=== PATIENT | male | born 1950 | race Caucasian/White ===

== ENCOUNTER 2024-12-12 20:42 | Outpatient (OUT) | payer MEDICARE, SELFPAY ==
--- OUTSIDE RECORDS SUMMARY | 2024-11-30 15:30 | XMS_ITS | Encounter Summary ---
Author Organization [facility] Address [address] [place] [address] Care Team Providers Care Principal Law Clerk Name Role Phone DavidPo marie DO Primary Care Provider Rosa Vicente AUD Unavailable [phone] Oziel Ramires DO Unavailable [phone] Reason for Visit * JleersJgwkqpzf6hn po port removal Encounter Details DateTypeDepartmentCare Team (Latest Contact Info)Adhvcajrybt22/09/2025 3:30 PM EDTOffice Visit [facility] [address] [place] [address] Remington Delaney, DO [address] [facility] [address] [place] [address] Adjustment and management of vascular access device (Primary Dx) Social History Tobacco UseTypesPacks/DayYears UsedDateSmoking Tobacco: Some DaysPipeSmokeless Tobacco: NeverAlcohol UseStandard Drinks/WeekCommentsNot Egfxdcbwx86 (1 standard drink = 0.6 oz pure alcohol)Sex and Gender InformationValueDate RecordedSex Assigned at BirthNot on fileLegal HxgTbeu6205/06/2022 6:36 PM EDTGender Identity Not on fileSexual OrientationNot on filedocumented as of this encounter Last Filed Vital Signs Vital SignReadingTime TakenCommentsBlood Pressure--Pulse--Temperature-- Respiratory Rate--Oxygen Saturation--Inhaled Oxygen Concentration--Gbimnf81.6 kg (202 lb)11/30/2024 3:20 PM PNXJlgyhu367.3 cm (5' 9 )11/30/2024 3:20 PM EDTBody Mass Index29.8311/30/2024 3:20 PM EDTdocumented in this encounter Progress Notes * Remington Delaney DO - 11/30/2024 3:30 PM EDT Images from the original note were not included. Jasper Tineo 1950 Jasper Tineo is a 74 y.o. male presents for 1st po port removal HPI: HPI Patient had no problems with the port removal. He has not having any pain. He has not having issues with the incision. He has not having any chest pain. He has not having any shortness of breath.He has not having any swelling anywhere. Not having any extremity pain or bruising OBJECTIVE: Physical Exam Constitutional: Appearance: Normal appearance. He is not toxic-appearing. Cardiovascular: Rate and Rhythm: Regular rhythm. Chest: Comments: Incision is clean dry and intact no cellulitis or hematoma Skin: Comments: No edema in the lower extremities. ASSESSMENT AND PLAN: Assessment/Plan Diagnoses and all orders for this visit: Adjustment and management of vascular access device - XR chest 2 views; Future Status post removal of vascular access port, at the site where the catheter dove under the claviclethat was frayed and had broken off. The intravascular portion of the catheter is still in place at its access site, postop chest x-ray had shown this had not moved and almost always there is a fibrinous sheath that would keep that in location. This probably will not be an issue to stay there and attempted removal could be difficult and potentially dangerous. He is fine with leaving this in place.We will get an x-ray again in 3 weeks to make sure this has not moved, if this did float intravascularly would be much easier to remove by endovascular fashion. He understands that. I will see him again in 3 weeks with x-ray. Cont on asa 81mg po qdaily No follow-ups on file. documented in this encounter Plan of Treatment DateTypeDepartmentCare Team (Latest Contact Info)Stposstzrpt50/29/2025 11:15 AM EDTOffice Visit [facility] [address] [facility] [address] [place] [address] Remington Delaney, DO [address] [facility] [address] [place] [address] documented as of this encounter Procedures Procedure NamePriorityDate/TimeAssociated DiagnosisCommentsXR CHEST 2 VIEWS Xivfiqp6912/06/2024 3:56 PM EDT Adjustment and management of vascular access device documented in this encounter Results * XR chest 2 views (12/06/2024 3:56 PM EDT)Anatomical RegionLateralityModality ChestRadiographic ImagingSpecimen (Source)Anatomical Location / Laterality Collection Method / VolumeCollection TimeReceived Time12/06/2024 3:56 PM EDT Impressions 12/06/2024 4:00 PM EDT THE REMAINING TUBING OF THE PATIENT'S PORT IS SEEN PROJECTING OVER THE EXPECTED LOCATION OF THE LEFT BRACHIOCEPHALIC VEIN. ? Impression dictated by: Moe Cole Jr., D.OUmair ??12/06/2024 3:57 PM ? Dictation Location: [facility]-22 ? Transcribed By: ? PWS ?12/06/24 1557 ? Dictated By: ?Moe Cole Jr, DO ?12/06/24 1556 ? Signed By: <Electronically signed by Moe Cole Jr DO in OV> ?10/15/25 1557 Narrative 12/06/2024 4:00 PM EDT [facility] ?[facility] ?[address] ? [place] [address] ?XRay Report ? Signed ? Patient: Noman,Jasper B ?MR#: [id number] ?? [id number] ? : 1950 ?Acct:[id number] ? Age/Sex: 74 / M ?ADM Date: 12/06/24 ? Loc: XD ?Room: ?Type: REG CLI ?? Attending Dr: Remington Delaney DO ?? Copies to: Remington Delaney DO ? Ordering Provider: Remington Delaney DO ?? Date of Service: 12/06/24 ?? XR/XR chest 2V*: Vascular access port ? Chest 2 views ? CLINICAL HISTORY: Broken port. ? COMPARISON: None ? FINDINGS: ? The remaining tubing of patient's port is seen over the expected location of the left brachiocephalic vein. ??Heart appears normal in size. 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 ??No consolidation pneumothorax pleural effusion or free air. ? XR/XR chest 2V* ?? Procedure Note Moe Cole Jr., DO - 12/06/2024 [facility] [address] XRay Report Signed Patient: Jasper Tineo BMR#: [id number] : 1950Acct:[id number] Age/Sex: 74 / MADM Date: 12/06/24 Loc: XD Room:Type: REG CLI Attending Dr: Remington Delaney DO Copies to: Remington Delaney DO Ordering Provider: Remington Delaney DO Date of Service: 12/06/24 XR/XR chest 2V*: Vascular access port Chest 2 views CLINICAL HISTORY: Broken port. COMPARISON: None FINDINGS: The remaining tubing of patient's port is seen over the expected locationof the left brachiocephalic vein. Heart appears normal in size. Evidence oldgranulomatous disease. No consolidation pneumothorax pleural effusion or free air. XR/XR chest 2V* IMPRESSION: THE REMAINING TUBING OF THE PATIENT'S PORT IS SEEN PROJECTING OVER THEEXPECTED LOCATION OF THE LEFT BRACHIOCEPHALIC VEIN. Impression dictated by: Moe Cole Jr., D.O. 12/06/2024 3:57 PM Dictation Location: [facility]--22 Transcribed By: [facility] 12/06/24 155 Dictated By: Moe Cole Jr, DO 12/06/24 1556 Signed By: <Electronically signed by Moe Cole Jr, DO inOV> 12/06/24 155 Authorizing ProviderResult TypeResult StatusPaul Tita Delaney DOIMG XR PROCEDURES Final Result documented in this encounter Visit Diagnoses Diagnosis Adjustment and management of vascular access device- Primary documented in this encounter Care Teams Team MemberRelationshipSpecialtyStart DateEnd Date Po Joseph DO [address] [place] [address] PCP - GeneralFamily Medicine07/03/24 Rosa Vicente, AUD [address] [place] [address] Audiology08/09/24 Oziel Ramires DO [address] [place] [address] Otolaryngology08/09/24documented as of this encounter
--- OUTSIDE RECORDS SUMMARY | 2024-12-06 21:02 | XMS_ITS | Continuity of Care Document ---
Author Organization [facility] Address [address] [place] [address] Phone Care Team Providers Care Personal Insurance Advisor Name Role Phone Po Joseph DO Primary Care Provider Nicky Munroe DO Attending Provider Jerel Hanson PhD Attending Provider [phone] Ab Sultana MD Attending Provider Leroy Vallejo DO Primary Care Provider Leroy Vallejo DO Attending Provider [phone] Remignton Delaney DO Attending Provider Mayo Joseph DO Primary Care Provider [phone] Care Teams Patient Care Team Team Status: Active Member Role Status Dates Rich Sultana Specialist Active ELENA CheneypecialistAELENA FisherpecialistActiveBerriospecialistAEda Whittaker Care ProviderActive Visit Care Team Team Status: Inactive Member Role Status Dates Po Joseph DO Primary Care Provider Active Sta rt: September 11, 2024 End: September 11, 2024Niccaridad Munroe DOAttending ProviderActiveStart: September 11, 2024 End: September 11, 2024 Visit Care Team Team Status: Inactive Member Role Status Dates Po Joseph DO Primary Care Provider Active Sta rt: September 12, 2024 End: September 12, 2024Jerel Hanson PhDAttending ProviderActiveStart: September 12, 2024 End: September 12, 2024 Visit Care Team Team Status: Inactive Member Role Status Dates Po Joseph DO Primary Care Provider Active Sta rt: September 25, 2024 End: September 25, 2024Jerel Hanson PhDAttending ProviderActiveStart: September 25, 2024 End: September 25, 2024 Visit Care Team Team Status: Inactive Member Role Status Dates Ab Sultana MD Attending Provider Active Start: October 12, 2024 End: October 12, 2024Eda Villagran Care ProviderActiveStart: October 12, 2024 End: October 12edward Og [facility] DO CHCReferring ProviderActiveStart: October 12, 2024 Visit Care Team Team Status: Inactive Member Role Status Dates Leroy Vallejo DO Primary Care Provider Active Start: October 17, 2024 End: October 17, 2024Leroy Vallejo DOAttending ProviderActiveStart: October 17, 2024 End: October 17, 2024 Visit Care Team Team Status: Inactive Member Role Status Dates Remington Delaney DO Attending Provider Active Start : November 22, 2024 End: November 22Eda Fair Care ProviderActiveStart: November 22, 2024 End: November 22, 2024 Visit Care Team Team Status: Inactive Member Role Status Dates Nicky Munroe DO Attending Provider Active Sta rt: November 29, 2024 End: November 29Eda Fair Care ProviderActiveStart: November 29, 2024 End: November 29, 2024 Visit Care Team Team Status: Inactive Member Role Status Emmanuel Joseph DO Primary Care Provider Active Sta rt: December 06, 2024 End: December 06, 2024Remington Delaney DOAttending ProviderActiveStart: December 06, 2024 End: December 06, 2024 Chief Complaint and Reason for Visit Chief Complaint Admit Date Routine September 11, 2024 1:54 pm NPCR TRAD MEDICARE/SUPP; YUNIOR pereyra 2024 12:46pm NPCR TRAD MEDICARE/SUPP; PER Zeenat Estrada ugust 2024 9:55am Follow Up after CT October 12, 2024 1: 14pm 5 month f/u-labs October 17, 2024 10 :21am Venous Insufficiency, port no longer nee ded November 22, 2024 1:58pm Results Review November 29, 2024 12 :55pm Z45.2 December 06, 2024 1 0:16am Reason for Visit Admit Date Concentration deficit September 11, 2024 1: 54pm Concentration deficit September 12, 2024 12 :46pm Memory loss September 12, 2024 12:4 6pm BERNADETTE (obstructive sleep apnea) September 12, 2024 12:46pm Word finding difficulty September 12, 2024 12:46pm Concentration deficit September 25, 2024 9 :55am Inadequate sleep hygiene September 25 9:55am Memory loss September 25, 2024 9:5 5am Mild cognitive impairment September 25 9:55am BERNADETTE (obstructive sleep apnea) September 9:55am Word finding difficulty September 25, 2024 9:55am Carcinoma of unknown primary September 1:14pm Encounter for palliative care September 1:14pm Mass of colon October 12, 2024 1: 14pm Polyarthralgia October 12, 2024 1: 14pm Cancer associated pain October 12, 2024 1:14pm Mediastinal mass October 12, 2024 1: 14pm B12 deficiency October 12, 2024 1: 14pm Carcinoma of unknown primary September 1:14pm Mass of colon October 12, 2024 1: 14pm Non-small cell lung cancer October 12, 2024 1:14pm Peripheral neuropathy October 12, 2024 1:14pm Secondary adrenal insufficiency September 232024 1:14pm Mediastinal mass October 12, 2024 1: 14pm Alcohol use October 17, 2024 10 :21am Carcinoma of unknown primary September 10:21am Daytime sleepiness October 17, 2024 10 :21am Dizziness October 17, 2024 10 :21am Forgetfulness October 17, 2024 10 :21am HTN (hypertension) October 17, 2024 10 :21am Nasal sinus congestion October 17, 2024 10:21am Sinusitis October 17, 2024 10 :21am Snoring October 17, 2024 10 :21am Hypersomnia November 29, 2024 12 :55pm Inadequate sleep hygiene November 29 12:55pm Medication side effect November 29, 2024 12:55pm Mild cognitive impairment November 29 12:55pm Allergies, Adverse Reactions, Alerts Allergen Type Severity Reaction Last Updated Verified Status Comments naproxen Allergy Unknown Hives November 29, 2024 1:06pm Yes Active pembrolizumabAllergyUnknownNumbnessOct2024 1:06pmYesActivenumbness in feet, diarrhea Social History Smoking Status Status Start Date End Date Date of Observa tion Smokes tobacco daily (finding) November 22, 2024 2:10pm Observation Status Observation Response Date of Response Legal Sex Male (finding) [facility] 1950 Family History Relationship Condition Age at Onset Recorded Date/T byron mother Diabetes mellitus Unknown fatherNo active medical problemsUnknownbrotherMalignant neoplasmUnknownbrother Malignant neoplasmUnknownbrotherDeceasedUnknownfatherDeceasedUnknownmother Diabetes mellitusUnknownDeceasedUnknown Problems Active Problems Medical Problem Onset Date Status Comments Daytime sleepiness Unknown Active Word finding difficultyUnknownActiveBone pain of lower legUnknownActiveCOVID-19 UnknownActiveHistory of immune checkpoint inhibitor therapyUnknownActiveAdverse effect of immune checkpoint inhibitors and immunostimulant drugs, initial encounterUnknownActiveOSA (obstructive sleep apnea)UnknownActiveSensation of fullness in left earUnknownActiveMedication side effectUnknownActiveMass of colonUnknownActiveSecondary adrenal insufficiencyUnknownActiveNasal sinus congestionUnknownActiveDizzinessUnknownActiveAlcohol useUnknownActive KgohagtqivqvmlQejkjhzGdvxpfM25 deficiencyUnknownActiveForgetfulnessUnknownActive Memory lossUnknownActiveDiarrheaUnknownActiveHyperlipidemiaUnknownActive HypersomniaUnknownActiveNon-small cell lung cancerUnknownActiveMild cognitive impairmentUnknownActivePeripheral neuropathyUnknownActiveSinusitisUnknownActive SnoringUnknownActiveInadequate sleep hygieneUnknownActiveCarcinoma of unknown primaryUnknownActiveLocated in upper anterior mediastinumChemotherapy adverse reactionUnknownActiveEncounter for palliative careUnknownActiveHTN (hypertension)UnknownActiveFrozen shoulder syndromeUnknownActiveRight shoulder Concentration deficitUnknownActiveInactive/Resolved Problems Medical Problem Onset Date Status Comments Ulcerative colitis in remission Unknown Resolved DiarrheaUnknownResolvedCancer associated painUnknownResolvedMediastinal mass UnknownResolvedHypoxiaUnknownResolvedStrain of neck muscleUnknownResolved HypotensionUnknownResolvedProctocolitisUnknownResolved Medications Medication Status Dose Units Route Directions Qty Days St art Date Stop Date End Date Instructions Adherence Folic Acid 1 mg tablet Discontinued 0 .ROUTE.MPXVUJO35Lprs 2023 8:26amJanuary 2024 11:43amTAKE 1 TABLET BY MOUTH DAILYDiphenoxylate-Atropine (Lomotil) 2.5-0.025 mg ksazqeUnfgyfdlgyfl6XZM POTwice daily as needed for junobffh9825Jhzmfih 2023 12:00amJanuary 2024 10:24amIbuprofen 800 mg xzurhrFohnrypgqkec278YBGEYzvep times daily as needed for dthu072Hdmsgbs 2024 11:53amJuly 2024 8:32amHydrocortisone 10 mg tabletDiscontinued0.ROUTE.VOOZINJ21Hlutyio 2024 4:01pmJanuary 2024 10:27amTAKE 2 TABLETS BY MOUTH IN THE MORNING and TAKE 1 TABLET BY MOUTH IN THE EVENINGAmlodipine 2.5 mg tabletActive2.6LBXFFgynd83Vyss 2024 12:00am UnknownIbuprofen 800 mg prgoleMwfmwakbufyi776BVLMIgpgl times daily as needed for enjq581Owni 2024 8:32amOctober 2024 1:06pmPrednisone 20 mg Tablet DiscontinuedNovember 2016 1:00amAugust 2019 11:15amFluticasone Propionate 50 mcg/actuation spray,suspensionDiscontinuedNovember 14th, 2017 1:002019 11:14amMesalamine (Lialda) 1.2 gram Tablet,Delayed Release (/Ec)DiscontinuedJanuary 05, 2017 1:002019 11:15am Hydrocodone-Acetaminophen ([place]) 5-325 mg hbxnkpRkpmjgpvwegt9EBAUMLIZNG 4-6 HOURS as needed for muas26Brqehxqx 16thgus2019 11:14am Amoxicillin-Pot Clavulanate (Augmentin) 875-125 mg tawxcsTeyjykblhvpi8ZSYWOJxkap czfia69Phfdmnsu2016 1:002019 11:14amwith food Hydrocortisone 10 mg ovveawPgoauweaycpx80FDXYWuynl tekvg42Fcddkx 2nd, 2024 12:00amSept2023 1:37pm2 tabs in morning, 1 tab in evening.Loperamide 2 mg ivssslrMhaxplsnzfsx5BHIGUdwjh 6 hours as needed for loose vngid31Lmsfvx 2023 12:00amJanuary 2024 11:44amIbuprofen 800 mg tabletDiscontinued 800MGPOThree times daily as needed for PainAugust 2019 12:00amMarch 2023 1:40pmCyanocobalamin (Vitamin B-12) (Vitamin B-12) 1,000 mcg TabletActive 1000MCGPODailyRiverside Health System2019 12:83cxOqzmwtkYvsqocns-Jcr-Nygpo-Vit K-Lycop (Men's Multivitamin) 400-20-300 mcg QlijjaZscaju1GFOBFZrxulPgrtrg 2019 12:00amUnknownAmlodipine 2.5 mg tabletDiscontinued2.5MGPOEvery morningJuly 2022 12:00amMay 2023 10:09amHydrochlorothiazide 12.5 mg tabletDiscontinued 12.5MGPOEvery morningJuly 2022 12:00amMay 2023 10:09amMethocarbamol 750 mg kyxpzsSslggciuwzhn383NIJYPdxxr at hpxmfpc01Dazr 2022 12:00amJanuary 2023 12:23pmHydrocodone-Acetaminophen 5-325 mg nnpmihCsdyplhgxtli2BRXNIL7Y as needed for ejii926Mdbl 2022January 2023 12:22pmLidocaine 5 % adhesive patch,fofspeskmHazounancgku6MCMGKAKDUCECT44U89Fpbx 2022 12:00am Deepa 2023 12:23pmleave on most painful area for up to 12 hrs Methylprednisolone (Medrol (Oseas)) 4 mg tablets,dose abuwImgzdpbtpweg1YY.COMPLEX 21July 2022 12:00amDecember 2022 11:07amorally per package directionsHydrocodone-Acetaminophen 5-325 mg LmgbyxTjauajkiifio6BUMLXL7O as needed for Kiks7153Ymxxgqs 2023February 2023 2:02pmOxycodone 5 mg xzxvkeKvniwthogjil5FRUCOccgm 6 hours as needed for hrin54Mvmuy 2023March 2023 1:40pmAspirin 81 mg xmzvvnpCsvmgk03RYIJJavzz27Nndhgbb 2024 12:00amUnknownTramadol 50 mg vzmtzxJugaloghtdzx63HDSZSzgmm daily as needed for nery7886Aqsod 2023 12:00amMay 2023 4:44pmFolic Acid 1 mg tablet Jxlnzyssosuf6HJKCLaioj72Adzmg 2023 12:00amJuly 2023 8:26am Fluticasone Furoate (Flonase Sensimist) 27.5 mcg/actuation spray,suspension Bxmvixujkmus5FVUWEPBYCSWPFDNDhjhx7.6June 2023 12:00amJuly 2023 9:15am into each nostrilPrednisone 20 mg rsgjiuPziowusiynjl39FWWKWyovt01Muzgyc 2023 12:00amSeptember 2023 1:37pmtake 60mg for 4 days then 50mg for 4 days then 40mg for 4 days then 30mg for 4 days then 20mg for 4days then 10mg for 1 week then stopHydrocortisone 10 mg xnbztkXycrdurpyukl17VFYDShnmu daily90 October 28, 2023 12:00amJanuary 2024 4:01pmtake 2 tabs in AM and 1 tab in PMPyridoxine (Vitamin B6) 50 mg ranytpWquflpypsbyd67FCXJJjstrElhkofe 2024 1:00amAugust 2024 10:46amHydrocortisone 10 mg yyjfqmNfuzbdhudzmr04EY PODailyFebuary 2024 10:26amAugust 2024 1:35pmAzithromycin (Zithromax Z-Oseas) 250 mg yrvqoqGfsgdfgdlpvm0NA.KDSVUYK3Jyprryc 2024 1:00amMarch 2024 10:15amFor 250 mg dose pack: take 500 mg today (day 1), then 250 mg for 4 days (days 2-5) POFluticasone Propionate (Flonase Allergy Relief) 50 mcg/actuation spray,xdetuwpucsHzawck2YGFMTFGBGLQTFADQwvsf mcgta43Bvhhazx2024 1:00amadminister into each nostrilUnknownAmoxicillin-Pot Clavulanate 875- 125 mg nbwildAtvbksiejcvg3LZRYZ.Twice a hln889Idqkpg 2024 12:00amOctober 2024 2:12pmOndansetron Hcl 8 mg fowivnWyqfjgliruzr5GMTRTmuxw 8 hours as needed for nausea and vgrotqgr23Ckxzukvy 2023 1:00amMarch 2023 1:40pmIbuprofen 800 mg hhbjrmLpjdkxvhnezj993KYQLJfntm times daily as needed for painMay 2023 12:00amJanuary 2024 11:54amThiamine Hcl (Vitamin B1) 100 mg nupazfUxcvaogyczpr381SOHXDzvnwHzl 2023 12:00amAugust 2024 10:46am Tramadol 50 mg bokgicJzuyakwrhomi26RHFIVyfau 6 hours as neededMay 2023 12:00amJuly 2023 9:32amDocusate Sodium (Colace) 100 mg capsuleDiscontinued 100MGPODailyy 2023 12:00amJuly 2023 8:34amGabapentin 300 mg mqeeyrcLzwbwrfgqsjg849FZDEScrym at uvwgqjc13Fhwg 2023 12:00amAugust 2023 1:35pmDiphenhydramine-Acetaminophen (Tylenol Pm Extra Strength) 25-500 mg spxaarIyqeuw1CBWSSFloxw at bedtime as needed for sleepJuly 2023 12:00am UnknownMagic Mouthwash W/Lidocaine 240 Ml Bottle 240 mL kpwskcNrjfgaikomzs8CJNY Four times vuuod992Pzsclyx 2023 12:00amJanuary 2024 11:44am hydrocortisone 20 mg tablet 120 mg; diphenhydramine 12.5 mg/5 mL oral liquid 60 mL; Ora-Sweet oral syrup 60 mL; nystatin 100,000 unit/mL oral suspension 60 mL; Lidocaine Viscous 2 % mucosal solution 60 mL; Per 240 mL swish and swallowAmlodipine 2.5 mg tabletDiscontinued2.5MGPO Bbnoq85Xmtvjr 2023 12:00amJanuary 2024 11:43amHydrochlorothiazide 12.5 mg byxsakUonxvkziefws40.1VMGEBqocq74Oapsoi 2023 12:00amJanuary 2024 10:24am Immunizations Immunization Event Date Not Given Reason Dose Number [employer] Lot Number Vaccine Information Statement (VIS) Detail Administration Location Pneumococcal Conjugate Vaccine, 13 valent September 27, 2017 Pneumococcal Conjugate Vaccine, 13 valentAugust 2018Patient Refused Pneumococcal Polysacc. Vaccine, 23 valentAugust 2018Patient RefusedZoster Vaccine Recombinant, AdjuvantedAugust 2017Zoster Vaccine Recombinant, AdjuvantedNovhopi [facility] 2017Tetanus toxoidAugust 2014Trivalent Influenza VaccineOctober 2018Trivalent Influenza VaccineAugust 2018Patient Refused Medical Equipment Device Date Implanted Date Explanted Device Deta ils ANCHOR SUTURE FT III 6.5X16.3M November 23, 2017 ANCHOR SUTURE FT III 6.5X16.3MOctober 2017ANCHOR SUTURE FT III 6.5X16.3M November 23, 2017Vascular port/catheterMarch 2023October 2024UDI: [id number] Issuing Agency: [facility] Device Id: [id number] Expiration Date: 2024-08-21 Lot Number: [id number] Procedures Procedure Date Performed Status XR chest 2V* December 06, 2024 10:25am compl eted OR Infusaport Insertion/Removal (Not Applicable) November 22, 2024 3:00pm completed Relevant Diagnostic Tests and/or Laboratory Data Diagnostic Imaging Reports Author [facility]oe Cole [facility] Date/TimeOct2024 3:57pm [place] [address] XRay Report Signed Patient: Jasper Tineo MR#: [id number] : 1950 Acct:[id number] Age/Sex: 74 / M ADM Date: Loc: Room: Type: [facility] Attending Dr: Remington Delaney DO Copies to: Remington Delaney DO~ Ordering Provider: Remington Delaney DO Date of Service: 12/06/24 XR/XR chest 2V*: Vascular access port Chest 2 views CLINICAL HISTORY: Broken port. COMPARISON: None FINDINGS: The remaining tubing of patient's port is seen over the expected location of theleft brachiocephalic vein. Heart appears normal in size. Evidence old granulomatous disease. No consolidation pneumothorax pleural effusion or free air. XR/XR chest 2V* IMPRESSION: THE REMAINING TUBING OF THE PATIENT'S PORT IS SEEN PROJECTING OVER THE EXPECTED LOCATION OF THE LEFT BRACHIOCEPHALIC VEIN. Impression dictated by: Moe Cole Jr., D.OUmair 12/06/2024 3:57 PM Dictation Location: [facility]--22 Transcribed By: PWS 12/06/24 155 Dictated By: Moe Cole Jr, DO 12/06/241555 Signed By: <Electronically signed by Moe Cloe Jr, DO in OV> 12/06/241556 Vital Signs Vital Reading Result Reference Range Collection Date/Time Height 69 [in_i] October 12, 2024 1:16rsIxkyqp75.44 kgAugust 2024 1:31pmBody Temperature 97.8 [degF]97.6-99.0August 2024 1:31pmHeart Rate96 /jul99-981Xjlqlb 2024 1:31pmRespiratory rate16 /uwt63-57Xwwftg 2024 1:31pmOxygen saturation by Pulse ulovpagq59 %95-100August 2024 1:31pmBP Squqzhds124 mm[Hg]100-140 October 12, 2024 1:31pmBP Ryywmmagb39 mm[Hg]60-100August 2024 1:31pmBMI (Body Mass Index)30.4 kg/y8Czflqu 2024 1:58mbHgflnh39 [in_i]October 17, 2024 10:32jzRetnom36.53 kgAugust 2024 10:46amHeart Rate89 /mbl86-539Khdaaz 2024 10:46amRespiratory rate16 /pwk82-46Mgznqd 2024 10:46amOxygen saturation by Pulse udcoekgl60 %95-100August 2024 10:46amBP Zgrlzfau210 mm[Hg]100-140August 2024 10:50amBP Afzjqsela93 mm[Hg]60-100August 2024 10:50amBMI (Body Mass Index)30.1 kg/d3Hmebgk 2024 10:38zjLomlqi55 [in_i]November 22, 2024 2:56rzNhptdo38.98 kgOctober 2024 2:08pmBody Xkkuhbsebrd47.9 [degF]97.6-99.0Oct2024 2:08pmHeart Mlxj299 /yox10-669 November 22, 2024 3:05pmRespiratory rate18 /imt60-48Bipgrbk 1st, 2025 3:05pm Oxygen saturation by Pulse yajocozy43 %95-100October 2024 3:05pmBP Systolic 126 mm[Hg]100-140October 2024 3:05pmBP Ceuihqzxn52 mm[Hg]60-100October 2024 3:41ggKbicsl40 [in_i]November 29, 2024 1:86ngCfjzsl06.98 kgOctober 2024 1:04pmHeart Rate94 /blp90-051Hivgmzd 8th, 2025 1:04pmOxygen saturation by Pulse gkrimqbr27 %95-100Oct2024 1:04pmBP Movyzydw691 mm[Hg]100-140 November 29, 2024 1:04pmBP Aqcfrvezz56 mm[Hg]60-100October 2024 1:04pmBMI (Body Mass Index)30.2 kg/n0Ixngzvl2024 1:04pm Advance Directives Advance Directive Response Recorded Date/ Time Advance Directives Yes September 21 10:12am Insurance Providers Guarantor Jasper Tineo Address [address] [facility] [address]Ilnselw Info.Home Phone: Payer Policy Id Subscriber's Name Subscriber Id Effectiv e Date Expiration Date Alice DELANEY [id number] Antonia Tineo [id number] B [id number] Encounters Encounter Location(s) Arrival/Admit Date Discharge/Depart Date Provider(s) Departed Physician/Prov ider Office Visit -[facility] Neurology September 11, 2024 1:54pm September 11, 2024 3:06pm Nicky Munroe DO Departed Physician/Prov ider Office Visit -[facility], [facility] Neurology September 12, 2024 12:46pm September 12, 2024 1:10pm Saulo Min PhD Departed Physician/Prov ider Office Visit -[facility], [facility] Neurology September 25, 2024 9:55am September 25, 2024 11:39am Saulo Min PhD Departed Physician/Prov ider [facility] October 12, 2024 1:14pm October 12, 2024 2:35pm Ab Sultana MD Departed Physician/Prov ider Office Visit -[facility] October 17, 2024 10:21am October 17, 2024 11:56am Leroy Vallejo DO Departed Surgical Day Care -Surgery [facility] November 22, 2024 1:58pm November 22, 2024 3:20pm Remington Delaney DO Departed Physician/Prov ider Office Visit -[facility] Neurology November 29, 2024 12:55pm November 29, 2024 1:22pm Nicky Munroe DO Departed Clinical -[facility] December 06, 2024 10:16am December 06, 2024 10:17am Remington Delaney DO Recent Diagnosis Onset Date Admit Date Concentration deficit Unknown September 11, 2024 1:54pm Concentration deficit Unknown September 12, 2024 12:46pm Memory loss Unknown September 12, 2024 12:46pm BERNADETTE (obstructive sleep apnea) Unknown [facility] 2024 12:46pm Word finding difficulty Unknown August 12:46pm Concentration deficit Unknown September 9:55am Inadequate sleep hygiene Unknown September 25, 2024 9:55am Memory loss Unknown September 25, 2024 9:55am Mild cognitive impairment Unknown September 25, 2024 9:55am BERNADETTE (obstructive sleep apnea) Unknown [facility] 2024 9:55am Word finding difficulty Unknown September 252024 9:55am Carcinoma of unknown primary Unknown Sep 1:14pm Encounter for palliative care Unknown [facility] 2024 1:14pm Mass of colon Unknown October 12 1:14pm Polyarthralgia Unknown October 12 1:14pm Cancer associated pain Unknown October 122024 1:14pm Mediastinal mass Unknown October 12 1:14pm B12 deficiency Unknown October 12 1:14pm Carcinoma of unknown primary Unknown Sep 1:14pm Mass of colon Unknown October 12 1:14pm Non-small cell lung cancer Unknown [facility] 2024 1:14pm Peripheral neuropathy Unknown September 1:14pm Secondary adrenal insufficiency Unknown October 12, 2024 1:14pm Mediastinal mass Unknown October 12 1:14pm Alcohol use Unknown October 17 10:21am Carcinoma of unknown primary Unknown Sep 10:21am Daytime sleepiness Unknown October 17, 2024 10:21am Dizziness Unknown October 17 10:21am Forgetfulness Unknown October 17 10:21am HTN (hypertension) Unknown October 17, 2024 10:21am Nasal sinus congestion Unknown October 172024 10:21am Sinusitis Unknown October 17 10:21am Snoring Unknown October 17 10:21am Hypersomnia Unknown November 29 12:55pm Inadequate sleep hygiene Unknown November 29, 2024 12:55pm Medication side effect Unknown November 292024 12:55pm Mild cognitive impairment Unknown Octobe r 2024 12:55pm Assessments Diagnosis Onset Date Resolution Status Admit Date Concentration deficit acuteJuly 2024 1:54pmConcentration deficitacuteJuly 2024 12:46pm Memory lossacuteJuly 2024 12:46pmOSA (obstructive sleep apnea)acuteJuly 2024 12:46pmWord finding difficultyacuteJuly 2024 12:46pm Concentration deficitacuteAugust 2024 9:55amInadequate sleep hygieneacute September 25, 2024 9:55amMemory lossacuteAugust 2024 9:55amMild cognitive impairmentacuteAugust 2024 9:55amOSA (obstructive sleep apnea)acuteAugust 2024 9:55amWord finding difficultyacuteAugust 2024 9:55amCarcinoma of unknown primaryacuteAugust 2024 1:14pmEncounter for palliative careacute October 12, 2024 1:14pmMass of colonacuteAugust 2024 1:14pmPolyarthralgia acuteAugust 2024 1:14pmCancer associated painresolvedAugust 2024 1:14pmMediastinal massinactiveAugust 2024 1:17lcQ01 deficiencyacuteAugust 2024 1:14pmCarcinoma of unknown primaryacuteAugust 2024 1:14pmMass of colonacuteAugust 2024 1:14pmNon-small cell lung canceracuteAugust 2024 1:14pmPeripheral neuropathyacuteAugust 2024 1:14pmSecondary adrenal insufficiencyacuteAugust 2024 1:14pmMediastinal massinactiveAugust 2024 1:14pmAlcohol useacuteAugust 2024 10:21amCarcinoma of unknown primary acuteAugust 2024 10:21amDaytime sleepinessacuteAugust 2024 10:21am DizzinessacuteAugust 2024 10:21amForgetfulnessacuteAugust 2024 10:21amHTN (hypertension)acuteAugust 2024 10:21amNasal sinus congestion acuteAugust 2024 10:21amSinusitisacuteAugust 2024 10:21amSnoring acuteAugust 2024 10:21amHypersomniaacuteOctober 2024 12:55pm Inadequate sleep hygieneacuteOctober 2024 12:55pmMedication side effect acuteOctober 2024 12:55pmMild cognitive impairmentacuteOctober 2024 12:55pm Plan of Treatment Author Leroy Vallejo [facility]Auth[facility]August 2024 1:33pmPatient's initial blood pressure here today was slightly elevated at 156/86. Orthostatics were completed today and standing blood pressure dropped to 130/90. He is currently taking 2.5 mg of amlodipine daily and we considered adjusting this, however given the orthostatic hypotension he is having and the dizziness he is describing I am hesitant to increase his amlodipine dose as I am concerned this may exacerbate his symptoms more. We agreed to keep his antihypertensive regimen the same and monitor this at home. Emphasized the importance of increasing his water intake and healthy dietary and lifestyle changes. Will plan to continue to monitor this and can adjust antihypertensive regimen in the future if appropriate. He is to call with any questions or concerns. Patient states an understanding and is agreeable with this plan of care. Patient had MRI of the brain with and without contrast performed on 08/17/2024 which showed findings that would support left-sided sinusitis with diffuse cerebral and cerebral atrophy greater than typical for age, but was otherwise unremarkable including no evidence of mass lesions in the brain. Labs were reviewed with the patient and were generally unremarkable. I suspect the patient's symptoms are likely multifactorial in etiology relating to deconditioning, daily alcohol use for the past 60 years, orthostatic hypotension, possibly sinusitis and/or the Keytruda use. Is also possible these are vertiginous in nature. He is not having any symptoms or physical exam findings to suggest this is cardiac in nature. We discussed numerous options today. I emphasized the importance of hydrating adequately with water throughout the day and reducing his diet soda intake along with reducing his alcohol intake. The MRI did show evidence of sinusitis and he has physical exam findings consistent with such, therefore we will attempt to treat this with a course of Augmentin as he states he has not been on antibiotics for this at all. His STOP- BANG score puts him at high risk of BERNADETTE and I am suspicious for such. It is possible if he is having severe apnea and/or hypoxia during the night that this may be causing his symptoms especially since they are worse in the morning. I did recommend referral to sleep medicine for polysomnogram and he is agreeable to such, therefore paper referral was filled out and faxed today. We also discussed potentially obtaining an ultrasound of the carotid arteries to evaluate for possible carotid disease, but patient deferred this for now and would like to proceed with this treatment plan prior to pursuing the carotid ultrasound. If he gets no improvement with this plan he may benefit from vestibular rehab as well and this can be considered in the future. He is to call with any questions or concerns. Patient states an understanding and is agreeable with this plan of care. See above plan. Patient recent MRI done, please see above plan for results of this. He was also evaluated by Dr. Hanson of neuropsychiatry and Dr. Munroe of neurology for this. Per Dr. Munroe's note from 09/04/2024 she recommended EEG. I cannot find the results of the EEG, but patient states he had this done and believes it was normal. Dr. Hanson's recent note notes that there is no evidence of a neurodegenerative condition or other organic etiology and his cognition and memory remains well-preserved. Dr. Hanson and also recommend polysomnogram to evaluate and treat suspected BERNADETTE which I placed a referral for today as noted above. I feel his forgetfulness is likely multifactorial in etiology as well similar to his dizziness symptoms. He is not a danger to himself or others at this point. I emphasized the importance of continuing to follow with Dr. Munroe per her direction as well as implementing the above plan that we discussed. He was not aware that he had a follow-up appointment with Dr. Munroe, however I see that he is scheduled for 110/8/25 and I hand wrote the date and time of the appointment along with Dr. Munroe's name on a card for him today. See above plan. Attempting to treat with Augmentin. As noted above, I do feel his daily alcohol use for the past 60 years is contributing to the symptoms he is describing. Emphasized the importance of alcohol cessation for his overall wellbeing and to help improve his symptoms. Patient reports that he is no longer undergoing any active treatment for this, and is taking a break from treatments until his next follow-up with oncology. Oncology is monitoring him at this time with regular imaging. He is to continue with oncology, and with their treatment plan, and we will continue to monitor. See above plans. Referring to sleep medicine for polysomnogram. See above plan. Author Nicky Munroe [facility] [id number] male with memory loss that appears to be most consistent with a mild cognitive impairment. He did have his neuropsych test which showed that he has at baseline. He has some attention and concentration difficulties. His EEG was within normal limits. His MRI was nonacute with atrophy and small vessel changes. Vitamin B12 is 549 his folic acid is 30. His thyroid was normal. This time he is doing fairly well. Will go ahead and get his sleep tested. Looks like he has a consultation at the sleep clinic in mid December. Since I am the sleep physician there is no point in him having another consultation with a different sleep physician. We will go ahead and just get him a polysomnogram will do this at [facility] to get it done faster. I do believe he needs a full polysomnogram due to the fact that he is not getting good quality sleep and I would like to look for amount of arousals along with periodic limb movements and positioning. This would be done in a full polysomnogram. I am also concerned about underlying obstructive sleep apnea. He does have daytime hypersomnia and likely snoring but his sleeps in a different room. He is getting adequate hours of sleep actually too many. He still feels groggy during the day. Plan EEG to assess brain waves.= wnl Track down ??MRI brain = atrophy and small vessel changes but was otherwise negative. Lab work to assess for reversible causes of memory loss.THS was 2.47 , B12 and folic acid were normal as above Neuropsych testing was reviewed with him and shows normal cognitive status. Will get a polysomnogram to assess for underlying obstructive sleep apnea periodic limb movement disorder for sleep cycling or other sleep disruption that could be causing daytime hypersomnia. ? Brain exercises. ? Cardiovascular exercise. ? Mediterranean diet. ? 8 hours of sleep. ? 12 hour fasting through the night if able. last MMSE 27/30 monitor memory The diagnosis was all discussed with the patient.?? All questions were answered and they agreed with the treatment plan.?? Patient will call if there are any new issues or questions. 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 -He was referred to thoracic surgery and PET scan was obtained for initial staging. CEA was obtained which was normal 0.6 on 02/08/2023. - PET CT done on 02/09/24 and the mediastinoscopy was done on 03/19/23 with multiple biopsies taken from the anterior mediastinal mass since the mass was adhesed to surrounding tissue and was not able to be removed. He recovered well form the mediastinoscopy without any complaints. 02/09/[address] revealed: There is a peripherally FDG avid and centrally necrotic mass in the anterior mediastinum to the left midline within maximum SUV of 5.8. No additional FDG avid lesions are noted to suggest metastatic disease. 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 The origin of the mediastinal tumor is not clear in this case, otherwise without obvious mesothelial or neuroendocrine features identified. The differential diagnosis may include NUT carcinoma, SMARCB1 deficient tumor, or poorly differentiated thymic carcinoma, requiring clinical correlations. The case will also be submitted for secondary consultation review at [facility] for possible further assessment of additional tumor markers for possible more definitive classification of the malignancy, and with findings in supplemental to follow. [facility] path review confirmed the above diagnosis. I discussed his case with Dr. Mcconnell and the decision was made to give him SBRT and this to be followed by chemoimmunotherapy including carboplatin Taxol and Keytruda for 4 cycles followed by 1 year of Keytruda. Treatment plan: Concurrent chemo radiation using weekly carbo Taxol and this is to be followed by chemoimmunotherapy including carboplatin Taxol and Keytruda for 4 cycles (4 weeks of concurrent plus 3 full doses of q21 days cycles) followed by 1 year of Keytruda. Concerns for progression of disease prompted treatment plan change to weekly carbo, taxol with radiation therapy from the initial plan of SBRT followed by carbo Taxol and keytruda as above. 05/03/23 cycle 1 day 1 of concurrent carbo + taxol He finished week 4 of the concurrent carboplatin and Taxol with radiation on 06/01/2023. The plan is to start the full dose of carboplatin and Taxol with Keytruda on 06/16/2023. It would be 3 total cycles of the full dose before we go with maintenance Keytruda after that. 05/07/23: He did very well overall with cycle 1 day 1 carbo + taxol with concurrent radiation. He is using Colace for his constipation, has not had any other major concerns. His labs remain ok for continued treatment with week #2 with radiation. He will continue with labs per treatment plan and will follow-up with Dr. Mason in 2wks. 05/21/23: He continues to do very well overall with treatment. He will receive week #4 treatment on Tuesday 05/23. Labs remain stable and ok for continued treatment. He will RTC with Dr. Mason in 1 week with continue labs weekly per treatment plan. 05/26/23: He is tolerating Concurrent chemoradiation well with some shortness of breath at times without chest pain or leg swelling or fevers or cough or hemoptysis. Labs otherwise unremarkable. He will finish week 4 of the concurrent carboplatin and Taxol with radiation on 06/01/2023. The plan is to start the full dose of carboplatin and Taxol with Keytruda on 06/16/2023. It would be 4 total cycles (so 3 full dose q21 days cycles) before we continue maintenance Keytruda after that. 06/16/23: Here to start C1 of the full dose carboplatin Taxol and Keytruda today out of the planned 3, then to have maintenance Keytruda. His ANC was 1.3 yesterday. He denied any fevers or chills or URI symptoms and no nausea or vomiting but stated his BP is low normal 110 systolically and he had to hold his BP meds most of the time. I asked him to see his PCP for that. No diarrhea or bleeding form any source. Rest of the CBCD and CMP were normal. He stated his fingers and toes feels cold but no tingling or numbness. - He proceeded with C1 out of the planned 3 ful doses of Carboplatin Taxol and Keytruda on 06/16/23. 07/07/23: he is here for C2 of Carboplatin Taxol and Keytruda. He has ankle pain at times since chemo started gotten worse, Also for few days after last cycle he has minimal ankle swelling. He has been feeding morning dizziness as well lasts couple of hours then gets better. BP is in 110s systolically. 07/28/23: Doing well with treatment except for constipation managed by prune juice. Labs are good for C3. Proceeded with C3 out of 3 of full dose carbo Taxol plus Keytruda. Advised to take MVI, Folic acid and thiamin 100 mg daily during the 3 cycles of the chemo due to the fact he has been drinking beers 2 daily. Brain MRI with and without for morning dizziness for few months was done on 07/26/23 revealed sinus issues and chronic microvascular ischemic changes but no metastases. 08/18/23: He is complaining of continues tingling of the fingers and the toes and became worse and toes and painful tingling in the right big toe since this morning. The pain has gotten worse for the last 2 weeks mainly 1 week after cycle 3 of the maintenance full dose CarboTaxol Keytruda. He is here supposedly to start cycle one of the maintenance Keytruda today. His labs revealed macrocytic anemia with MCV 105-107. PLAN: Due to worsening neuropathy of the toes mainly that became painful tingling and also continuous neuropathy if in mind and fingers, will delay the starting of the maintenance Keytruda 3 weeks for now so will not be today. The delay with patient to start related to 09/08/2023 if patient is revealing signs of improving even slightly of his neuropathy. Start him on B6 50 mg daily in addition to his thiamine or B1 which she is taking 100 daily and continue B12 for now which he is not sure of what dose he is taking. If his neuropathy persists external will gabapentin 300 mg at bedtime at the beginning. Then can be advanced to twice daily if no improvement is seen 3 weeks later. Will obtain PET CT scan 1 month prior to radiation oncology appointment May use Tylenol and Ibuprofen occasionally for his ankle arthritis pain which could be related to Keytruda. RTC in 3 weeks with Romina for C1 of the maintenance Keytruda. 09/08/23: His neuropathy has worsened since his last visit, so we will plan to initiate gabapentin and re-evaluate in a few weeks. He has also noted mild diarrhea that seems to be improving without intervention. Otherwise he is without new/worsening concerns. His labs remain stable. He does not want to start any treatment until his next follow-up, which we agree with. 09/20/2023: He c/o diarrhea since 09/03/2023. The patient states the diarrhea has improved over the past couple days. He reports he is having about 5-6 soft-liquid stools. He denies blood, coffee ground or black tarry like stools, foam, or mucus in the stools. He states he has diarrhea a couple times at night, no incontinence. He states he has been taking Imodium after each loose stool, denies taking two tabs with initial loose stool each day. He reports his stools are very foul smelling. He denies fever, chills, or night sweats. He denies abdominal pain except for region of previous biopsy site (L thorax). He reports eating a normal diet since the diarrhea episodes began. His Keytruda is still on hold. He reports stopping his gabapentin for neuropathy because he thought it may have been a cause for the diarrhea. He will restart the gabapentin at 300mg PO Q HS. Hold treatment until seen by oncologist after PetCT. Prednisone 10mg PO daily x 7 days Take Imodium 2 tabs with first loose stool then 1 tab after each loose stool thereafter. Increase oral fluid intake, bland diet Check stool for c-diff, O&P stool culture. F/U in one week to re-assess symptoms. If symptoms relieved, cancel appointment and f/u with oncologist as previously scheduled. PLAN: Gabapentin 300mg at bedtime DELAY treatment with maintenance Keytruda until follow-up follow-up with Dr. Mason in 4 weeks (to line up with his rad onc appointment just after PET scan) continue labs per treatment plan, add in magnesium to next draw (2) History of mass of colon History of colon mass in 2020 noted on the ascending colon during colonoscopy biopsy of which was negative for malignancy but revealed fibrous tissue. 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 -He was referred to thoracic surgery and PET scan was obtained for initial staging. CEA was obtained which was normal 0.6 on 02/08/2023. - PET CT done on 02/09/24 and the mediastinoscopy was done on 03/19/23 with multiple biopsies taken from the anterior mediastinal mass since the mass was adhesed to surrounding tissue and was not able to be removed. He recovered well form the mediastinoscopy without any complaints. 02/08/[address] revealed: There is a peripherally FDG avid and centrally necrotic mass in the anterior mediastinum to the left midline within maximum SUV of 5.8. No additional FDG avid lesions are noted to suggest metastatic disease. 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 Note: -There is significant crushed degeneration of the tumor cells, limiting effective cytomorphological assessment. The origin of the mediastinal tumor is not clear in this case, otherwise without obvious mesothelial or neuroendocrine features identified. The differential diagnosis may include NUT carcinoma, SMARCB1 deficient tumor, or poorly differentiated thymic carcinoma, requiring clinical correlations. The case will also be submitted for secondary consultation review at [facility] for possible further assessment of additional tumor markers for possible more definitive classification of the malignancy, and with findings in supplemental to follow. [facility] path review confirmed the above diagnosis. I discussed his case with Dr. Mcconnell and the decision was made to give him SBRT and this to be followed by chemoimmunotherapy including carboplatin Taxol and Keytruda for 4 cycles followed by 1 year of Keytruda. Treatment plan: Concurrent chemo radiation using weekly carbo Taxol and this is to be followed by chemoimmunotherapy including carboplatin Taxol and Keytruda for 4 cycles (4 weeks of concurrent plus 3 full doses of q21 days cycles) followed by 1 year of Keytruda. Concerns for progression of disease prompted treatment plan change to weekly carbo, taxol with radiation therapy from the initial plan of SBRT followed by carbo Taxol and keytruda as above. 05/03/23 cycle 1 day 1 of concurrent carbo + taxol He finished week 4 of the concurrent carboplatin and Taxol with radiation on 06/01/2023. The plan is to start the full dose of carboplatin and Taxol with Keytruda on 06/16/2023. It would be 3 total cycles of the full dose before we go with maintenance Keytruda after that. 05/07/23: He did very well overall with cycle 1 day 1 carbo + taxol with concurrent radiation. He is using Colace for his constipation, has not had any other major concerns. His labs remain ok for continued treatment with week #2 with radiation. He will continue with labs per treatment plan and will follow-up with Dr. Mason in 2wks. 05/21/23: He continues to do very well overall with treatment. . He received week #4 treatment on Tuesday 05/2305/26/23: He is tolerating Concurrent chemoradiation well with some shortness of breath at times without chest pain or leg swelling or fevers or cough or hemoptysis. Labs otherwise unremarkable. He will finish week 4 of the concurrent carboplatin and Taxol with radiation on 06/01/2023. The plan is to start the full dose of carboplatin and Taxol with Keytruda on 06/16/2023. It would be 4 total cycles (so 3 full dose q21 days cycles) before we continue maintenance Keytruda after that. 06/16/23: Here to start C1 of the full dose carboplatin Taxol and Keytruda today out of the planned 3, then to have maintenance Keytruda. His ANC was 1.3 yesterday. He denied any fevers or chills or URI symptoms and no nausea or vomiting but stated his BP is low normal 110 systolically and he had to hold his BP meds most of the time. I asked him to see his PCP for that. No diarrhea or bleeding form any source. Rest of the CBCD and CMP were normal. He stated his fingers and toes feels cold but no tingling or numbness. - He proceeded with C1 out of the planned 3 ful doses of Carboplatin Taxol and Keytruda on 06/16/23. 07/07/23: he is here for C2 of Carboplatin Taxol and Keytruda. He has ankle pain at times since chemo started gotten worse, Also for few days after last cycle he has minimal ankle swelling. He has been feeding morning dizziness as well lasts couple of hours then gets better. BP is in 110s systolically. 07/28/23: Doing well with treatment except for constipation managed by prune juice. Labs are good for C3. Proceeded with C3 out of 3 of full dose carbo Taxol plus Keytruda. Advised to take MVI, Folic acid and thiamin 100 mg daily during the 3 cycles of the chemo due to the fact he has been drinking beers 2 daily. Brain MRI with and without for morning dizziness for few months was done on 07/26/23 revealed sinus issues and chronic microvascular ischemic changes but no metastases. 08/18/23: He is complaining of continues tingling of the fingers and the toes and became worse and toes and painful tingling in the right big toe since this morning. The pain has gotten worse for the last 2 weeks mainly 1 week after cycle 3 of the maintenance full dose CarboTaxol Keytruda. He is here supposedly to start cycle one of the maintenance Keytruda today. His labs revealed macrocytic anemia with MCV 105-107. - Due to worsening neuropathy of the toes mainly that became painful tingling and also continuous neuropathy if in mind and fingers, will delay the starting of the maintenance Keytruda 3 weeks for now so will not be today. The delay with patient to start related to 09/08/2023 if patient is revealing signs of improving even slightly of his neuropathy. Start him on B6 50 mg daily in addition to his thiamine or B1 which she is taking 100 daily and continue B12 for now which he is not sure of what dose he is taking. If his neuropathy persists external will gabapentin 300 mg at bedtime at the beginning. Then can be advanced to twice daily if no improvement is seen 3 weeks later. Will obtain PET CT scan 1 month prior to radiation oncology appointment May use Tylenol and Ibuprofen occasionally for his ankle arthritis pain which could be related to Keytruda. RTC in 3 weeks with Romina for C1 of the maintenance Keytruda. 09/08/23: His neuropathy has worsened since his last visit, so we will plan to initiate gabapentin and re-evaluate in a few weeks. He has also noted mild diarrhea that seems to be improving without intervention. Otherwise he is without new/worsening concerns. His labs remain stable. He does not want to start any treatment until his next follow-up, which we agree with. 10/07/2023: Patient has been admitted 2-3 times with diarrhea and was ruled out for C. difficile colitis. His abdominal CT scan done on 09/28/2023 revealed diverticulosis with under distended colon. PET CT scan done on 10/04/2023 revealed pancolitis picture. In terms of the mediastinal mass in the left upper chest, PET scan revealed mild activity with SUV of 3.3. No evidence of metastatic disease anywhere else. Patient continues to have watery diarrhea 3-5 times a day. He takes Imodium but 3-4 times a day. His neuropathy has been the same and taking his gabapentin as well as his vitamins. He denies any fevers or any severe abdominal pain. He has postnasal drainage but denies any shortness of breath or chest pain. We stopped Keytruda since he did not tolerate Keytruda causing multiple episodes of pancolitis and multiple admissions with diarrhea. He still has diarrhea about 5 times in 24 hours. He denied any bloody stool. Was checked for C. difficile and was negative. Continued his B1 B6 B12 vitamins and gabapentin 300mg at bedtime for neuropathy management. TREATMENT PLAN: Follow observation without any treatment at this point with active surveillance and repeat CAT scan of chest abdomen pelvis in mid of November 2023 for now. To treat his pancolitis related to Keytruda, he was started on 10/07/23 on prednisone tapering schedule at 60 mg daily for 4 days then 50 mg daily for 4 days then 40 mg daily for 4 days then 30 mg daily for 4 days then 20 mg daily for 4 days then 10 mg for 7 days then stop but we will continue hydrocortisone 20 in the morning and 10 in the evening to manage his adrenal gland insufficiency related to his Keytruda. 10/28/23: He is here for 1 month after he was treated with prednisone in a tapering schedule for his pancolitis. His diarrhea has completely resolved after 2 weeks of starting the prednisone. He denies any nausea or vomiting or abdominal pain or diarrhea and denies any melena or rectal bleeding. He had couple of episodes when his blood pressure became higher than before and his primary care physician restarted him on Norvasc 2.5 mg daily and hydrochlorothiazide 12.5 mg daily. He felt almost dizzy couple of times at home without chest pain or palpitations or irregular heartbeats or tachycardia. He has been checking his blood pressure at home but not during those events and his blood pressure has been normal. TREATMENT PLAN: Continue observation without any treatment for his mediastinal non-small cell lung cancer for now. Plan is CAT scan of chest abdomen and pelvis middle of November 2023. If he has disease progression then we will start him on chemo. He is not able to tolerate immunotherapy due to severe pancolitis. 12/08/23: He is here for 5 weeks follow-up for his history of carcinoma of mediastinal mass of unknown primary treated with concurrent chemoradiation and followed by 3 maintenance doses of CarboTaxol and Keytruda followed by maintenance Keytruda however it did not finish Keytruda due to severe pancolitis with severe diarrhea. He complains of persistent mouth sore over 6 weeks now on the left cheek. No other complaints. still taking Hydrocortisone 10 mg bid. Labs on 12/06/2023 revealed stable macrocytic anemia with MCV improving down to 105.7 and hemoglobin 12.5 similar to 5 weeks ago and a white count of 11.4 with platelet of 381. Absolute neutrophil count is 8.7 and her monocyte count of 1.0. Creatinine is normal 0.78 and magnesium 1.7 with normal liver function test as well. TSH is 1.11 and total cortisol level was normal 16.0 with ACTH being low 1.8. He continues to use hydrocortisone 10 mg twice daily. CAT scan of chest abdomen pelvis done on 12/06/2023 revealed interval decrease in size of the patient anterior mediastinal mass suggestive response to treatment. No CT evidence of progression of disease. The mass measures now 1.9 x 1.4 cm previously was 2.5 x 1.8 cm. No mediastinal lymphadenopathy. 03/09/24: He is here for 3 months follow up for his mediastinal NSCLC and results of the PET CT and labs. He is going to see Dr. Grissom from GI for his Keytruda related severe colitis on 03/21/2024 for the first time as he still has intermittent diarrhea without mucus and without blood in the stool for which he uses Imodium intermittently. His last Carbo Taxol and Keytruda note was on 07/28/23. he has been off treatment since then. He saw Dr. 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 He saw him on 03/13/2024 and plan to see him back by the end of April 2 decrease further his hydrocortisone dose. Labs on 03/06/2024 revealed resolved anemia hemoglobin down to 13.8. He has a normal WBC and platelet count is 1. His MCV is 105.4 still elevated but stable. This labs revealed normal kidney function with creatinine 0.84 on normal LFTs as well. His last B12 folate were in 09/22/2023 and there were no high levels. His cortisol level now is 11.5 and ACTH is 27.5. His free T4 is normal at 0.69 and TSH is normal 2.19. His PET CT scan done on 03/06/2024 revealed negative PET/CT scan for any FDG avid lesions. His anterior mediastinal mass is grossly similar to prior CT. Plan: Continue observation or active surveillance for his mediastinal non-small cell lung cancer for now. CAT scan of chest abdomen pelvis in 3 months Labs including CBC CMP free cortisol level ACTH TSH and free T4 and 3 months and see him then. RTC in 3 months after labs and scans. Continue to follow with Endocrinology for the tapering schedule recommendations from his secondary adrenal insufficiency. For now he is on 50 mg hydrocortisone in the morning and 5 mg at noon. He is going to see Dr. Grissom from GI for his Keytruda related severe colitis on 03/21/2024 for the first time as he still has intermittent diarrhea without mucus and without blood in the stool for which he uses Imodium intermittently. Follow with oral surgeon for the left cheek mouth sore as needed. 06/07/2024: Here for 4 month f/u visit for his mediastinal NSCLC. He reports chronic pain in the knees 04/03 currently. Takes Ibuprofen 800mg PO daily for the discomfort and it helps. Appetite good, weight increased. Denies recent fevers, chills, or night sweats. Reports rib pain at site of previous biopsy, otherwise no CP or palpitations. Denies sob, positive for cough intermittently r/t postnasal drainage plugging up the left ear, placed on Flonase and Zyrtec by PCP. Scheduled to see ENT next month to help improve symptoms. Bowels are now normal, no diarrhea or mucus. He states he has not yet scheduled an appointment with Dr. Grissom. Reports urinary frequency, nocturia 1-2 times nightly. Still reports neuropathy, improved, currently in the toes versus the entire foot, no falls. CT C/A/P done 06/05/2024: Negative for progression of disease. His anterior mediastinal mass is grossly similar to prior CT Labs done 06/05/2024: wbc 8.3, MCV 104.8, MCH 36.4, Hgb 15.4, Hct 44.3%, plt 358. He is scheduled to see Dr. Patricia next week, total cortisol 5.7, ACTH 20.3, TSH 2.47, FT4 0.64. He is currently taking hydrocortisone once weekly (lowered dosing himself), wants to stop after seeing Dr. Patricia. 10/12/24: He is here for 4 months active surveillance visit for history of NSCLC and CT scans and lab results. - Labs on 10/10/2024 revealed normal CBC except for MCV of 107.6 without anemia. CMP is unremarkable. Calcium is normal. LFTs normal. B12 is 549 folate is 30. Free T4 and TSH are normal and total cortisol 9.4 with ACTH of 21.8 both are normal. -CAT scan of chest abdomen and pelvis done on 10/10/[address] evidence of progression of disease but bladder wall thickening recommend urinalysis and urine cytology to rule out cystitis or muscular hypertrophy versus other pathology. Patient denied any dysuria or gross hematuria or flank pain or any other complaints. PLAN Obtain urinalysis and urine cytology and evidence of microscopic hematuria none referred to urology. Continue hydrocortisone 50 mg in the morning and 5 mg at nighttime. Follow up in [address] C/A/P and labs cbc, cmp, B12 level, copper level, folate, TSH, t4, ACTH, and Cortisol. (2) History of mass of colon History of colon mass in 2020 noted on the ascending colon during colonoscopy biopsy of which was negative for malignancy but revealed fibrous tissue. Future Tests Future scheduled test information is unavailable Pending Tests Test Name Ordered Date Scheduled Date CT abdomen pelvis w con October 12, 2024 2:12pm [address] chest w con October 12, 2024 2:12pm 6 Month s Comprehensive Metabolic Panel October 12, 2024 2:12pm 6 Months Future Visits Future appointment information is unavailable Referrals to Other Providers Referral information is unavailable Future Procedures Procedure Name Ordered Date Scheduled Date Return to [facility] On[facility] February 03 11:20am 3 Weeks Histology (Oncology) April 08, 2023 2:53pm 1 Days Oncology Outpatient Referral To: February 03, 2023 11:20am 3 Days Oncology Outpatient Referral To: February 12, 2023 3:15pm 1 Days ANC>=1500 April 28, 2023 3:10pm April 12:00am ANC>=1500 April 28, 2023 3:10pm April 12:00am ANC>=1500 April 28, 2023 3:10pm May 12:00am ANC>=1500 April 28, 2023 3:10pm April 12:00am ANC>=1500 April 28, 2023 3:10pm May 12:00am Hold & Call Ordering Physici an if Pt Does Not Meet Criteria April 28, 2023 3:10pm May 17, 2023 12:00am Hold & Call Ordering Physici an if Pt Does Not Meet Criteria April 28, 2023 3:10pm June 01, 2023 12:00am Hold & Call Ordering Physici an if Pt Does Not Meet Criteria April 28, 2023 3:10pm May 03, 2023 12:00am Hold & Call Ordering Physici an if Pt Does Not Meet Criteria April 28, 2023 3:10pm May 10, 2023 12:00am Hold & Call Ordering Physici an if Pt Does Not Meet Criteria April 28, 2023 3:10pm May 24, 2023 12:00am Apply O2 via Nasal Cannula 4 L to Maintain SpO2 of >=90% April 28, 2023 3:10pm May 03, 2023 12:00am Apply O2 via Nasal Cannula 4 L to Maintain SpO2 of >=90% April 28, 2023 3:10pm May 10, 2023 12:00am Apply O2 via Nasal Cannula 4 L to Maintain SpO2 of >=90% April 28, 2023 3:10pm May 17, 2023 12:00am Apply O2 via Nasal Cannula 4 L to Maintain SpO2 of >=90% April 28, 2023 3:10pm May 24, 2023 12:00am Apply O2 via Nasal Cannula 4 L to Maintain SpO2 of >=90% April 28, 2023 3:10pm June 01, 2023 12:00am Orders Panel Function Communication Order August 18, 2023 9:19am August 18, 2023 9:19am Orders Panel Function Communication Order September 08, 2023 9:55am September 08, 2023 9:55am Orders Panel Function Communication Order May 13, 2023 9:15am May 13, 2023 9:15am Orders Panel Function Communication Order May 26, 2023 1:40pm May 26, 2023 1:40pm Orders Panel Function Communication Order May 26, 2023 1:49pm May 26, 2023 1:49pm Orders Panel Function Communication Order June 16, 2023 9:03am June 16, 2023 9:03am Orders Panel Function Communication Order October 07, 2023 2:37pm October 07, 2023 2:37pm Platelets>=100,000 April 28, 2023 3:10pm May 03, 2023 12:00am Platelets>=100,000 April 28, 2023 3:10pm May 10, 2023 12:00am Platelets>=100,000 April 28, 2023 3:10pm May 17, 2023 12:00am Platelets>=100,000 April 28, 2023 3:10pm May 24, 2023 12:00am Platelets>=100,000 April 28, 2023 3:10pm June 01, 2023 12:00am No Growth Factor April 28, 2023 3:10pm May 022023 12:00am Discharge Order November 22, 2024 3:02pm November 22, 2024 3:03pm HEATING FIXTURE TENDER polysom procedure November 29, 2024 1:29pm Adrenocorticotropic Hormone PLAugust 2024 2:12pm6 MonthsComplete Blood Count Auto DiffAugust 2024 2:12pm6 MonthsCortisolAugu2024 2:12pm6 MonthsCopperAugust 2024 2:12pm6 MonthsFree T4 (Free Thyroxine)October 12, 2024 2:12pm6 MonthsThyroid Stimulating HormoneAugust 2024 2:12pm6 MonthsVit. B12/Folate ProfileAugust 2024 2:12pm6 Months Future Medications Future medication information is unavailable Patient Instructions Instruction Admit Date Carboplatin Paclitaxel (Conventional)October 12, 2024 1:14pmKnow your MedsOctober 2024 1:58pm Goals Acute Goals Author Authored Date Experience reduced anxiety * Identifies current stressors * Develops effective coping behaviors * [facility] 2024 4:21pmRemain free of complications [facility] 2024 4:21pmUnderstand preop/postop care/sensations * Verbalizes understanding of surgical procedure * Verbalizes understanding of sensations following surgery * Verbalizes understanding of post-op treatment planReg[facility] Hospital [facility]Octhealth[facility] 2024 4:21pmReport pain at tolerable level * Uses pain scale appropriately * Identify options for pain control - Analgesics - Narcotics - Non-medication measuresRegency Hospital [facility]Octhealth[facility] 2024 4:21pmAbsence of imbalanced fluid volume s/s [facility] 2024 4:21pmAbsence of physical injury [facility] 4:21pmAbsence of surgical site infection [facility] 4:21pm
--- OUTSIDE RECORDS SUMMARY | 2024-12-12 20:46 | XMS_ITS | Encounter Summary ---
Author Organization [facility] Address [address] [place] [address] Care Team Providers Care Guest Relations Executive Name Role Phone Po Joseph DO Primary Care Provider Rosa Vicente AUD Unavailable [phone] Oziel Ramires DO Unavailable [phone] Encounter Details DateTypeDepartmentCare Team (Latest Contact Info)Xonwlglhcct08/09/2025Travel Social History Tobacco UseTypesPacks/DayYears UsedDateSmoking Tobacco: Some DaysPipeSmokeless Tobacco: NeverAlcohol UseStandard Drinks/WeekCommentsNot [id number] (1 standard drink = 0.6 oz pure alcohol)Sex and Gender InformationValueDate RecordedSex Assigned at BirthNot on fileLegal KspBbxg4605/06/2022 6:36 PM EDTGender Identity Not on fileSexual OrientationNot on filedocumented as of this encounter Plan of Treatment DateTypeDepartmentCare Team (Latest Contact Info)Gkwjkblbkje49/29/2025 11:15 AM EDTOffice Visit [facility] [address] [place] [address] Remington Delaney DO [address] [facility] [address] [place] [address] documented as of this encounter Visit Diagnoses Not on filedocumented in this encounter Care Teams Team MemberRelationshipSpecialtyStart DateEnd Date Po Joseph DO [address] [place] [address] PCP - Generalmily Medicine07/03/24 Rosa Vicente AUD [address] [place] [address] Audiology08/09/24 Oziel Ramires DO [address] [place] [address] Otolaryngology08/09/24documented as of this encounter
--- OUTSIDE RECORDS SUMMARY | 2024-12-12 20:46 | XMS_ITS | Clinical Summary ---
Author Organization [facility] Address [address] [place] [address] Care Team Providers Care Farmer Cash Grain Name Role Phone DavidPo marie DO Primary Care Provider [phone] Rosa Vicente AUD Unavailable [phone] Oziel Ramires DO Unavailable [phone] Allergies Active AllergyReactionsCriticalityNoted DateCommentsNaproxenHives,RashHigh 02/02/20126969Cboxghkbfmscd79/21/2025 Other Reaction(s): Numbness numbness in feet, diarrhea Medications MedicationSigDispense QuantityRefillsLast FilledStart DateEnd DateStatus amLODIPine (Norvasc) 10 MG tablet Take by mouth DailyActive cyanocobalamin (Vitamin B-12) 1000 MCG tablet Take 1,000 mcg by mouth DailyActive diphenhydrAMINE-acetaminophen (Tylenol PM) 25-500 MG per tablet Take 1 tablet by mouth as needed at bedtime for sleepActive ibuprofen 800 MG tablet Take 800 mg by mouth in the morning and 800 mg in the evening and 800 mg before bedtime.Active Multiple Vitamin (MULTI VITAMIN MENS PO) Take by mouthActive gabapentin (Neurontin) 300 MG capsule Take 300 mg by mouth in the morning and 300 mg in the evening and 300 mg before bedtime.11/30/2024Discontinued(Therapy completed) folic acid (Folvite) 1 MG tablet Take by mouth Daily11/30/2024Discontinued(Therapy completed) hydroCHLOROthiazide (HYDRODiuril) 12.5 MG tablet Take 12.5 mg by mouth Daily11/30/2024Discontinued(Therapy completed) loperamide (Imodium) 2 MG capsule Take 2 mg by mouth 4 (four) times a day as needed for clzmvvim84/09/2025 Discontinued(Therapy completed) thiamine (Vitamin B-1) 100 MG tablet Take 100 mg by mouth Daily11/30/2024Discontinued(Therapy completed) Active Problems ProblemNoted DateDiagnosed DateAdjustment and management of vascular access nynlwq1010/25/2024 Resolved Problems ProblemNoted DateDiagnosed DateResolved DateBone pain of lower leg08/09/2024 08/09/2024ancer associated painhronic ethmoidal sinusitis hronic szhwqdiaqbba36OVID-19008/09/2024 08/09/2024Encounter for palliative careFever08/09/2024 08/09/2024Frozen shoulder suyvvpcy23Hypotension08/09/2024 08/09/20245236Vztginc70PolyarthralgiaStrain of neck cfgvuj58bnormal EKG0lass 1 obesity without serious comorbidity with body mass index (BMI) of 32.0 to 32.9 in adult Preoperative jefykszoy66Mediastinal mass ecal polypSmoker Uncomplicated alcohol nhkalwnnkx02Noninfectious jfdjytgsnwwsdqd86hest painLeft shoulder painLeukocytosisUlcerative colitis in cgkqagkmz76Essential Encounters DateTypeDepartmentCare KynmJdzqupnifst09/10/2215Ocsnva60/09/2025 3:30 PM EDT Office Visit [facility] [address] [place] [address] Remington Delaney, Adjustment and management of vascular access device (Primary Dx)11/30/2024Travel 11/29/2024Orders Only [facility] [address] [place] [address] Remington Delaney, 11/23/2024Orders Only [facility] [address] [place] [address] Bouchra Mandel MA Adjustment and management of vascular access fsnuov3311/14/20242350Qhcqlz93/03/2025 10:30 AM EDTConsult [facility] [address] [place] [address] Remington Delaney, Adjustment and management of vascular access device (Primary Dx)10/25/2024Travel 10/20/20245699Uvgcnf92/18/2025 11:10 AM EDTOffice Visit [facility] [address] [place] [address] Taylor Monet MD Secondary adrenal insufficiency (HCC) (Primary Dx); High risk medication use; Primary orhkgfdiuugl65/18/2025amboo flowsheet [facility] [address] [place] [address] Taylor Monet MD 10/03/2024 9:30 AM EDTOffice Visit [facility] [address] [place] [address] Sensorineural hearing loss, bilateral (Primary Dx)09/19/2024 10:00 AM EDTOffice Visit [facility] [address] [place] [address] Sensorineural hearing loss, bilateral (Primary Dx)from Last 3 Months Immunizations ImmunizationAdministration DatesNext DueInfluenza, seasonal, injectable 12/08/2018Pneumococcal Conjugate PCV 13009/27/2017Tetanus toxoid, adsorbed 09/22/2014Zoster, Gvstfodsfan57/27/2018,09/27/2017 Family History Medical HistoryRelationNameCommentsLung cancerBrotherDiabetesMotherRelationName StatusCommentsBrotherFatherDeceasedMotherDeceased Social History Tobacco UseTypesPacks/DayYears UsedDateSmoking Tobacco: Some DaysPipeSmokeless Tobacco: Never Tobacco Cessation:Ready to Q uit: Not Asked; Counseling Given: Not Answered Alcohol UseStandard Drinks/WeekCommentsNot Aeebbgard58 (1 standard drink = 0.6 oz pure alcohol)Sex and Gender InformationValueDate RecordedSex Assigned at BirthNot on fileLegal DvpTpcp5505/06/2022 6:36 PM EDTGender IdentityNot on file Sexual OrientationNot on file Last Filed Vital Signs Vital SignReadingTime TakenCommentsBlood Zhsxiqip986/7809 10:23 AM EDT Ttqcf2363 11:04 AM APBNevknzhbtml19.4 ??C (97.6 ??F)12/08/2023 1:24 PM EDTRespiratory Jkwr551710/09/2024 11:04 AM EDTOxygen Ucpjchrlcw63%10/09/2024 11:04 AM EDTInhaled Oxygen Concentration--Pzengr88.6 kg (202 lb)11/30/2024 3:20 PM EDT Tvamzi209.3 cm (5' 9 )11/30/2024 3:20 PM EDTBody Mass Index29.8311/30/2024 3:20 PM EDT Plan of Treatment DateTypeDepartmentCare Team (Latest Contact Info)Ljrrznkhnod88/29/2025 11:15 AM EDTOffice Visit [facility] [address] [facility] [address] [place] [address] Remington Delaney DO [address] [address] Procedures Procedure NamePriorityDate/TimeAssociated DiagnosisCommentsXR CHEST 2 VIEWS Qplgwxe6412/06/2024 3:56 PM EDT Adjustment and management of vascular access device GENERAL UBHUBHWTWWfidqgc78/01/2025 11:22 AM EDTBASIC METABOLIC PANELRoutine 10/03/2024 11:04 AM EDT Secondary adrenal insufficiency (HCC) IGF 1, LC/IWZyizswu17/12/2025 11:04 AM EDT Secondary adrenal insufficiency (HCC) VISZgakyoq35/12/2025 11:04 AM EDT Secondary adrenal insufficiency (HCC) T4, LWIKPsmeiyw60/12/2025 11:04 AM EDT Secondary adrenal insufficiency (HCC) GOFJhcvrvg36/12/2025 11:04 AM EDT Secondary adrenal insufficiency (HCC) HOGqsiehu15/12/2025 11:04 AM EDT Secondary adrenal insufficiency (HCC) GROWTH HORMONE (GH)Ezadtuv2610/03/2024 11:04 AM EDT Secondary adrenal insufficiency (HCC) ACTH, SDYGQUWwqewjr62/12/2025 11:04 AM EDT Secondary adrenal insufficiency (HCC) CORTISOL, IRHGAZmeassk07/12/2025 11:04 AM EDT Secondary adrenal insufficiency (HCC) from Last 3 Months Results * XR chest 2 views (12/06/2024 3:56 PM EDT)Anatomical RegionLateralityModality ChestRadiographic ImagingSpecimen (Source)Anatomical Location / Laterality Collection Method / VolumeCollection TimeReceived Time12/06/2024 3:56 PM EDT Impressions 12/06/2024 4:00 PM EDT THE REMAINING TUBING OF THE PATIENT'S PORT IS SEEN PROJECTING OVER THE EXPECTED LOCATION OF THE LEFT BRACHIOCEPHALIC VEIN. ? Impression dictated by: Moe Cole Jr., D.O. ??12/06/2024 3:57 PM ? Dictation Location: RADIO-PC-22 ? Transcribed By: ? PWS ?12/06/24 1557 ? Dictated By: ?Moe Cole Jr, DO ?12/06/24 1556 ? Signed By: <Electronically signed by Moe Cole Jr, DO in OV> ?12/06/24 1557 Narrative 12/06/2024 4:00 PM EDT [facility] ?[facility] Main [place] ?[address] ? [place] [address] ?XRay Report ? Signed ? Patient: Noman,Jasper B ?MR#: [id number] ?? [id number] ? : 1950 ?Acct:[id number] ? Age/Sex: 74 / M ?ADM Date: 12/06/24 ? Loc: XD ?Room: ?Type: REG CLI ?? Attending Dr: Remington Delaney DO ?? Copies to: Remington Delaney,DO ? Ordering Provider: Remington Delaney,DO ?? Date of Service: 12/06/24 ?? XR/XR [...] 2V* ?? Procedure Note Moe Cole Jr., - 12/06/2024 [facility] Main [place] [address] [place] [address] XRay Report Signed Patient: Jasper Tineo BMR#: [id number] : 1950Acct:[id number] Age/Sex: 74 / MADM Date: 12/06/24 Loc: XD Room:Type: [facility] Attending Dr: Remington Delaney DO Copies to: [...] Jr., D.OUmair 12/06/2024 3:57 PM Dictation Location: [place] [address] Transcribed By: [facility] 12/06/24 155 Dictated By: Moe Cole Jr, DO 12/06/24 155 Signed By: <Electronically signed by Moe Cole Jr, DO inOV> 12/06/241556 Authorizing ProviderResult TypeResult StatusPaul Tita Delaney DOIMG XR PROCEDURES Final Result * GENERAL PATHOLOGY (11/22/2024 11:22 AM EDT) Narrative Authorizing ProviderResult TypeResult StatusRemington Delaney DOCLINISYNCFinal Result * Insulin-like growth factor 1 (10/03/2024 11:04 AM EDT)ComponentValueRef Range Test MethodAnalysis TimePerformed AtPathologist SignatureINSULIN-LIKE GROWTH FACTOR Y54554 - 222 ng/mLLABCORPSpecimen (Source)Anatomical Location / LateralityCollection Method / VolumeCollection TimeReceived TimeBloodVenous blood specimen / Xhdyatv1310/03/2024 11:04 AM EDT10/03/2024 Narrative [facility] - 10/04/2024 6:35 PM EDT Performed at: [address] [place] [address] ??[id number] Property Caretaker: Ken Roberts MD, Phone: ??[phone] Authorizing ProviderResult TypeResult StatusTaylor Monet MDANTHONY MEDICAL [facility]ENTER BLOOD ORDERABLESFinal ResultPerforming OrganizationAddressCity/[facility] CenterPhone Number [facility] * Growth hormone (10/03/2024 11:04 AM EDT)ComponentValueRef RangeTest Method Analysis TimePerformed AtPathologist SignatureGROWTH HORMONE, SERUM0.10.0 - 10.0 ng/mLLABCORPSpecimen (Source)Anatomical Location / LateralityCollection Method / VolumeCollection TimeReceived TimeBloodVenous blood specimen / Ldofacx1410/03/2024 11:04 AM EDT10/03/2024 Narrative [facility] - 10/04/2024 6:35 PM EDT Performed at: [address] ??[id number] Property Caretaker: Ken Roberts MD, Phone: ??[phone] Authorizing ProviderResult TypeResult StatusTaylor Monet MDAN[facility]ONY [facility] BLOOD ORDERABLESFinal ResultPerforming OrganizationAddressty/[facility] CodePhone Number [facility] * ACTH (10/03/2024 11:04 AM EDT)ComponentValueRef RangeTest MethodAnalysis Time Performed AtPathologist SignatureACTH, GPRSAU03.07.2 - 63.3 pg/mLLABCORP Comment:ACTH reference interval for samples collected between 7 and 10 AM. Specimen (Source)Anatomical Location / LateralityCollection Method / Volume Collection TimeReceived TimeBloodVenous blood specimen / Ihapooy8110/03/2024 11:04 AM EDT10/03/2024 Narrative [facility] - 10/04/2024 6:35 PM EDT Performed at: [address] ??[id number] Property Caretaker: Sly Major PhD, Phone: ??[phone] Authorizing ProviderResult TypeResult StatusDavinctabdoulaye Monet MDANTHONY [facility] BLOOD ORDERABLESFinal ResultPerforming OrganizationAddressty/State/ZIP CodePhone Number [facility] * TSH (10/03/2024 11:04 AM EDT)ComponentValueRef RangeTest MethodAnalysis Time Performed AtPathologist SignatureTSH2.3700.450 - 4.500 uIU/mLLABCORPSpecimen (Source)Anatomical Location / LateralityCollection Method / VolumeCollection TimeReceived TimeBloodVenous blood specimen / Euwznin3510/03/2024 11:04 AM EDT 10/03/2024 Narrative [facility] - 10/04/2024 6:35 PM EDT Performed at: [place] [address] [address] [facility], [address] [place] [address] ??[phone] Property Caretaker: Thierry Linares MD, Phone: ??[phone] Authorizing ProviderResult TypeResult StatusThe Orthopedic Specialty Hospitalabdoulaye Monet MDAN[facility]ON[facility] BLOOD ORDERABLESFinal ResultPerforming OrganizationAddressty/State/ZIP CodePhone Number [facility] * T4, free (10/03/2024 11:04 AM EDT)ComponentValueRef RangeTest MethodAnalysis TimePerformed AtPathologist KdpxsdrczX5Umgc(Direct)0.950.82 - 1.77 ng/dL [facility]PSpecimen (Source)Anatomical Location / LateralityCollection Method / VolumeCollection TimeReceived TimeBloodVenous blood specimen / Unknown 10/03/2024 11:04 AM EDT10/03/2024 Narrative [facility] - 10/04/2024 6:35 PM EDT Performed at: [facility] [address], [place], [place] ??[id number] Property Caretaker: Thierry Linares MD, Phone: ??[phone] Authorizing ProviderResult TypeResult StatusTaylor MARIE BLOOD ORDERABLESFinal ResultPerforming OrganizationAddressCity/State/ZIP CodePhone Number [facility] * Luteinizing hormone (10/03/2024 11:04 AM EDT)ComponentValueRef RangeTest MethodAnalysis TimePerformed AtPathologist SignatureLH4.21.7 - 8.6 mIU/mL [facility]PSpecimen (Source)Anatomical Location / LateralityCollection Method / VolumeCollection TimeReceived TimeBloodVenous blood specimen / Unknown 10/03/2024 11:04 AM EDT10/03/2024 Narrative [facility] - 10/04/2024 6:35 PM EDT Performed at: [facility] [address], [address] [place] [address] ??[id number] Property Caretaker: Thierry Linares MD, Phone: ??[phone] Authorizing ProviderResult TypeResult StatusTaylor MARIE BLOOD ORDERABLESFinal ResultPerforming OrganizationAddressCity/State/ZIP CodePhone Number [facility] * Follicle stimulating hormone (10/03/2024 11:04 AM EDT)ComponentValueRef Range Test MethodAnalysis TimePerformed AtPathologist SignatureFSH5.71.5 - 12.4 mIU/mLLABCORPSpecimen (Source)Anatomical Location / LateralityCollection Method / VolumeCollection TimeReceived TimeBloodVenous blood specimen / Iusjwos3210/03/2024 11:04 AM EDT10/03/2024 Narrative [facility] - 10/04/2024 6:35 PM EDT Performed at: [facility] [address], [place], [place] ??[id number] Property Caretaker: Thierry Linares MD, Phone: ??[phone] Authorizing ProviderResult TypeResult StatusTaylor MARIE BLOOD ORDERABLESFinal ResultPerforming OrganizationAddressCity/State/ZIP CodePhone Number [facility] * Cortisol (10/03/2024 11:04 AM EDT)ComponentValueRef RangeTest MethodAnalysis TimePerformed AtPathologist SignatureCORTISOL8.76.2 - 19.4 ug/dLLABCORP Comment: Please Note: The reference interval and flagging for this test is for an AM collection. If this is a PM collection please use: ? Cortisol PM: 2.3-11.9 Specimen (Source)Anatomical Location / LateralityCollection Method / Volume Collection TimeReceived TimeBloodVenous blood specimen / Qwgdpdf9610/03/2024 11:04 AM EDT10/03/2024 Narrative [facility] - 10/04/2024 6:35 PM EDT Performed at: [address] ??[id number] Property Caretaker: Sly Major PhD, Phone: ??[phone] Authorizing ProviderResult TypeResult StatusTaylor Monet MDLAB BLOOD ORDERABLESFinal ResultPerforming OrganizationAddLECOM Health - Corry Memorial Hospitalty/State/ZIP CodePhone Number [facility] * Basic metabolic panel (10/03/2024 11:04 AM EDT)ComponentValueRef RangeTest MethodAnalysis TimePerformed AtPathologist LqydvzoyxQtnnzmw2938 - 99 mg/dL ZHABJTOFSM697 - 27 mg/dLLABCORPCreat0.920.76 - 1.27 mg/mWNUTDAESXCRZ32>59 mL/min/1.73LABCORPBUN/Creat Spuqn4729 - 02SROUZLHEnmwke723171 - 144 mmol/L [facility]PPotassium4.53.5 - 5.2 mmol/LJUSVQSNFscvdwxl63605 - 106 mmol/[facility] Carbon Xyuhcdy4126 - 29 mmol/[facility]ABCORPCalcium9.78.6 - 10.2 mg/dLLABCORPSpecimen (Source)Anatomical Location / LateralityCollection Method / VolumeCollection TimeReceived TimeBloodVenous blood specimen / Ryhszgu8910/03/2024 11:04 AM EDT 10/03/2024 Narrative [facility] - 10/04/2024 6:35 PM EDT Performed at: 01 - [facility] [address], [address], [place], [place] ??[id number] Property Caretaker: Thierry Linares MD, Phone: ??[phone] Authorizing ProviderResult TypeResult StatusTaylor MARIE BLOOD ORDERABLESFinal ResultPerforming OrganizationAddressCity/State/ZIP CodePhone Number [facility] from Last 3 Months Insurance Care Teams Team MemberRelationshipSpecialtyStart DateEnd Po Joseph DO [address] [place] [phone] PCP - GeneralFamily Medicine07/03/24 Rosa Vicente, DAT [address] [place] [address] Audiology08/09/24 Oziel Ramires DO [address] [place] [address] Otolaryngology08/09/24
--- OUTSIDE RECORDS SUMMARY | 2024-12-12 20:46 | XMS_ITS | Clinical Summary ---
Author Organization [facility] Address [address] [facility], [address] [place] [address] Care Team Providers Care Portable Machine Sander Name Role Phone Moe Najera DO Primary Care Provider [phone] Allergies Active AllergyReactionsCriticalityNoted NyxgIteklojuGyovjciyPqewIau50/11/2012 Medications MedicationSigDispense QuantityRefillsLast FilledStart DateEnd DateStatus fluticasone (FLONASE) 50 MCG/ACT nasal spray 1 spray by Nasal route dailyActive ibuprofen (ADVIL;MOTRIN) 800 MG tablet Take 1 tablet by mouth every 6 hours as neededActive amLODIPine (NORVASC) 2.5 MG tablet Take 1 tablet by mouth daily01/05/2023ctive hydroCHLOROthiazide (HYDRODIURIL) 12.5 MG tablet Take 1 tablet by mouth every ldgnnpa9702/25/2023ctive ondansetron (ZOFRAN) 8 MG tablet Take 1 tablet by mouth every 8 hours as needed for Nausea or Utqfopsg82/15/2024 Active Active Problems ProblemNoted DateDiagnosed DateMediastinal mass4Chest pain02/02/2012 Left shoulder pain02/02/2012HTN (hypertension)02/02/20122920Pusqdzdqpkvl94/11/2012 Ulcerative lgmxesr8302/02/2012 Social History Tobacco UseTypesPacks/DayYears UsedDateSmoking Tobacco: Every DayPipeSmokeless Tobacco: Never Tobacco Cessation:Ready to Q uit: No; Counseling Given: No Alcohol UseStandard Drinks/WeekCommentsYes6 (1 standard drink = 0.6 oz pure alcohol)FrequentlySex and Gender InformationValueDate RecordedSex Assigned at BirthNot on fileLegal CjgGjea5904/06/2012 1:40 AM ESTGender IdentityNot on file Sexual OrientationNot on file Last Filed Vital Signs Vital SignReadingTime TakenCommentsBlood Crqvwhyw379/9802/02/2012 4:00 PM EST Vkcsb276204/12/2023 1:11 PM QTXTrjthsnwrvq43.8 ??C (98.3 ??F)04/12/2023 1:11 PM ESTRespiratory Vlea701304/04/2011 4:00 PM ESTOxygen Ggscpxggbi43%04/12/2023 1:11 PM ESTInhaled Oxygen Concentration--Fajgft06 kg (205 lb)04/12/2023 1:11 PM EST Ujimnm688.8 cm (5' 10 )04/12/2023 1:11 PM ESTBody Mass Index29.41004/12/2023 1:11 PM EST Plan of Treatment Health MaintenanceDue DateLast DoneCommentsDepression Ejfynu9908/08/1961Hepatitis C nelont6708/09/1967DTaP/Tdap/Td vaccine (1 - Tdap)08/08/19687253Woretq07/17/1990 Idjadltruys25/17/1995FIT/FOBT: Average risk1994Sigmoidoscopy/CT jlegxdskvqum48/17/1995AAA etecqx0708/08/2014Pneumococcal 50+ years Vaccine (2 of 2 - PPSV23, PCV20, or PCV21)Annual Wellness Visit (Medicare) 4Colorectal Cancer Rlrrba3712/10/2023Fecal-DNA (Cologuard): Average risk espiratory Syncytial Virus (RSV) or age 60 yrs+ (1 - 1-dose 75+ series)2024Flu vaccine (#1)COVID-19 Vaccine ( - 2023- season)2024Shingles njygdceTiuvqukqo99/27/2018, 09/27/2017Hepatitis A vaccineAged OutNo longer eligible based on patient's age to complete this topicHepatitis B vaccineAged OutNo longer eligible based on patient's age to complete this topicHib vaccineAged OutNo longer eligible based on patient's age to complete this topicMeningococcal (ACWY) vaccineAged OutNo longer eligible based on patient's age to complete this topicMeningococcal B vaccineAged OutNo longer eligible based on patient's age to complete this topic Polio vaccineAged OutNo longer eligible based on patient's age to complete this topic Insurance Advance Directives * Full Code (Latest Code Status on File) Date ActivatedDate IugztkrytpjPapgrrhe26/11/2012 7:47 AM02/02/2012 8:35 PM Care Teams Team MemberRelationshipSpecialtyStart DateEnd Date Moe Najera DO [address] [place] [address] PCP - Petxfnz53/11/12
--- OUTSIDE RECORDS SUMMARY | 2024-12-12 20:46 | XMS_ITS | Encounter Summary ---
Author Organization [facility] Address [address] [place] [address] Care Team Providers Care Zinc Plate Cutter Name Role Phone Po Joseph DO Primary Care Provider [phone] Rosa Vicente AUD Unavailable [phone] Oziel Ramires DO Unavailable [phone] Encounter Details DateTypeDepartmentCare Team (Latest Contact Info)Lozslagrozd17/10/2025Travel Social History Tobacco UseTypesPacks/DayYears UsedDateSmoking Tobacco: Some DaysPipeSmokeless Tobacco: NeverAlcohol UseStandard Drinks/WeekCommentsNot Dnxzkmmeo40 (1 standard drink = 0.6 oz pure alcohol)Sex and Gender InformationValueDate RecordedSex Assigned at BirthNot on fileLegal YptHdaq8205/06/2022 6:36 PM EDTGender Identity Not on fileSexual OrientationNot on filedocumented as of this encounter Plan of Treatment DateTypeDepartmentCare Team (Latest Contact Info)Tiywfkqxqih15/29/2025 11:15 AM EDTOffice Visit [facility] [address] [facility] [address] [place] [address] Remington Delaney DO [address] [facility] [address] [place] [address] documented as of this encounter Visit Diagnoses Not on filedocumented in this encounter Care Teams Team MemberRelationshipSpecialtyStart DateEnd Date Po Joseph DO [address] [place] [address] PCP - Generalmily Medicine07/03/24 Rosa Vicente AUD [address] [place] [address] Audiology08/09/24 Oziel Ramires DO [address] [place] [address] Otolaryngology08/09/24documented as of this encounter
--- OUTSIDE RECORDS SUMMARY | 2024-12-12 20:46 | XMS_ITS | Clinical Summary ---
Author Organization [facility] Address [address] [place] [address] Phone Care Team Providers Care Pharmaceutical Service Representative Name Role Phone Jake Po Deisy DAMON Primary Care Provider [phone] Slade Quevedo MD Unavailable [phone] Allergies Active AllergyReactionsCriticalityNoted DateCommentsNaproxen SodiumHivesHigh 03/05/2023 Medications MedicationSigDispense QuantityRefillsLast FilledStart DateEnd DateStatus multivitamin tablet Take 1 tablet by mouth once daily.Active hydroCHLOROthiazide (HYDRODiuril) 12.5 mg tablet Take 1 tablet (12.5 mg) by mouth once daily.Active amLODIPine (Norvasc) 2.5 mg tablet Take 1 tablet (2.5 mg) by mouth once daily.Active ibuprofen 800 mg tablet Take 1 tablet (800 mg) by mouth every 8 hours if needed for mild pain (1 - 3). Active Active Problems ProblemNoted DateDiagnosed DateAbnormal EKG003/05/2023Essential hypertension 03/05/2023reoperative keanetjph64/12/2024Class 1 obesity without serious comorbidity with body mass index (BMI) of 32.0 to 32.9 in adult03/05/2023 Mediastinal mass03/05/2023 Family History Medical HistoryRelationNameCommentsDiabetesMotherRelationNameStatusComments Mother Social History Tobacco UseTypesPacks/DayYears UsedDateSmoking Tobacco: Every DayPipeSmokeless Tobacco: Never Tobacco Cessation:Ready to Q uit: No; Counseling Given: Yes Alcohol UseStandard Drinks/GrxxSbennvjxPyn33 (1 standard drink = 0.6 oz pure alcohol)Sex and Gender InformationValueDate RecordedSex Assigned at BirthNot on fileLegal McuEjbh81/26/2022 2:39 AM ESTGender IdentityNot on fileSexual OrientationNot on file Last Filed Vital Signs Vital SignReadingTime TakenCommentsBlood Vigrrqaj294/90003/05/2023 1:52 PM EST Gprkn293403/05/2023 1:51 PM ESTTemperature--Respiratory Rate--Oxygen Saturation-- Inhaled Oxygen Concentration--Dglgjc40.7 kg (211 lb)03/05/2023 1:51 PM ESTHeight 172.7 cm (5' 8 )03/05/2023 1:51 PM ESTBody Mass Index32.0803/05/2023 1:51 PM EST Plan of Treatment Health MaintenanceDue DateLast DoneCommentsCT Vrquebslitux27/17/1950Colonoscopy 1950FIT1949Lipid Panel1949 4806Funylawkzafxv96/17/1950MMR Vaccines (1 of 1 - Standard series)1Diabetes Khqhoruna79/17/1968Hepatitis C Orqxfpxlk61/17/1968DTaP/Tdap/Td Vaccines (1 - Tdap)08/09/1971Colorectal Cancer Cebkiiqhf81/18/2024FIT-DNA (Cologuard)Medicare Annual Wellness Visit (AWV)/, 01/01/2022, 10/19/2019, Additional history existsRSV High Risk: (Elderly (60+) or Population) (1 - 1-dose 75+ series)2024Influenza Vaccine (#1)51, 12/08/2018, 10/04/2018, Additional history existsCOVID-19 Vaccine ( - season) 2024Zoster EporyetuXftgbsweg07/27/2018, 09/27/2017Pneumococcal Vaccine Dlwzpfgpi96/13/2019, 10/04/2018, 09/27/2017HIB VaccinesAged OutNo longer eligible based on patient's age to complete this topicHPV VaccinesAged OutNo longer eligible based on patient's age to complete this topicHepatitis A VaccinesAged OutNo longer eligible based on patient's age to complete this topic Hepatitis B VaccinesAged OutNo longer eligible based on patient's age to complete this topicIPV VaccinesAged OutNo longer eligible based on patient's age to complete this topicMeningococcal VaccineAged OutNo longer eligible based on patient's age to complete this topicRotavirus VaccinesAged OutNo longer eligible based on patient's age to complete this topic Insurance * Guarantor: Kam Tineo TypeRelation to PatientDate of BirthPhone Billing AddressPersonal/AcovqjTnyj30[birth year][address] [address] * Guarantor: Kam Tineo TypeRelation to PatientDate of BirthPhone Billing AddressPersonal/SsaaiqElou87/17/1951 [address] [address] Care Teams Team MemberRelationshipSpecialtyStart DateEnd Date Po Joseph DO [facility] - [facility] Slade Quevedo MD Referring PhysicianThoracic Surgery03/05/23
--- OUTSIDE RECORDS SUMMARY | 2024-12-12 20:46 | XMS_ITS | Encounter Summary ---
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 Name Role Phone Po Joseph DO Primary Care Provider [phone] Rosa Vicente AUD Unavailable [phone] Oziel Ramires DO Unavailable [phone] Encounter Details DateTypeDepartmentCare Team (Latest Contact Info)Jprdvoenegn97/08/2025Orders Only [facility] [address] [address] Remington Delaney DO [address] [address] Social History Tobacco UseTypesPacks/DayYears UsedDateSmoking Tobacco: Some DaysPipeSmokeless Tobacco: NeverAlcohol UseStandard Drinks/WeekCommentsNot Zxatubcoa62 (1 standard drink = 0.6 oz pure alcohol)Sex and Gender InformationValueDate RecordedSex Assigned at BirthNot on fileLegal RzlSmly4905/06/2022 6:36 PM EDTGender Identity Not on fileSexual OrientationNot on filedocumented as of this encounter Plan of Treatment DateTypeDepartmentCare Team (Latest Contact Info)Eldjrxcqecf92/29/2025 11:15 AM EDTOffice Visit [facility] [address] [facility] [address] [place] [address] Remington Delaney DO [address] [address] documented as of this encounter Procedures Procedure NamePriorityDate/TimeAssociated DiagnosisCommentsGENERAL PATHOLOGY Wbohsip7211/22/2024 11:22 AM EDTdocumented in this encounter Results * GENERAL PATHOLOGY (11/22/2024 11:22 AM EDT) Narrative Authorizing ProviderResult TypeResult StatusPadana Delaney DOCLINISYNCFinal Result documented in this encounter Visit Diagnoses Not on filedocumented in this encounter Care Teams Team MemberRelationshipSpecialtyStart DateEnd Date Po Joseph DO [address] [place] [address] PCP - GeneralFamily Medicine07/03/24 Rosa Vicente, DAT [address] [place] [address] Audiology08/09/24 Oziel Ramires DO [address] [place] [address] Otolaryngology08/09/24documented as of this encounter
--- OUTSIDE RECORDS SUMMARY | 2024-12-12 20:46 | XMS_ITS | Clinical Summary ---
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 Systems Analyst Name Role Phone Po Joseph Primary Care Provider Allergies Active AllergyReactionsCriticalityNoted DvhrJpxguvmfDevpvxibNlhgr73/24/2022 Medications MedicationSigDispense QuantityRefillsLast FilledStart DateEnd DateStatus amLODIPine (NORVASC) 2.5 mg tablet Take by mouth once daily.Active ibuprofen (MOTRIN ORAL) Take by mouth as needed.Active cyanocobalamin, vitamin B-12, (B-12 DOTS ORAL) Take 1,000 mg by mouth once daily.Active multivitamin with minerals (MEN'S ONE DAILY ORAL) Take by mouth once daily.Active iv contrast (will be provided with radiology test) Indications:Colonic massCT Chest ABD/PEL-Inject, intravenously, once for 1 dose.No IV access, insert saline lock prior to the beginning of sedation, infusion, injection of imaging exam. Discontinue saline lock post exam. IfPt. has a central line or IVAD, may access for administration according to line specific nursing protocol. Once exam is complete flush line and de-access according to line specific nursing protocol in the CT contrast administration guidelines link. 1 Each 05/07/2021ctive enteric contrast (will be provided with radiology test) Indications:Colonic massFor CT CHESTABD/PEL W IVCON Routine order Administer, As Directed One Time Only, via Oral, Rectal, both Oral and Rectal, Enteric Tube, Stoma or Indwelling Catheter, Enteric Contrast as designated perenteric contrast guidelines 1 Each 05/07/2021ctive Active Problems ProblemNoted DateDiagnosed DateCecal polyp05/06/2021Mass of cecum04/30/2021 Assessment & Plan (04/30/2021 12:27 PM EST): Assessment: Scheduled for surgery Ogqtphogrmkj68/09/2022 Assessment & Plan (04/30/2021 12:27 PM EST): Assessment: BP today 167/103 on repeat. Daily amlodipine, [facility] will discuss need for improved blood pressure control. Patient to follow PCP instructions for morning of surgery antihypertensives if any new medications are added to his regimen. Atywwg2204/30/2021 Assessment & Plan (04/30/2021 12:27 PM EST): Assessment: Current smoker, aware of pre-op instructions. Uncomplicated alcohol clsstevkfx05/09/2022 Assessment & Plan (04/30/2021 12:29 PM EST): Assessment: Daily alcohol consumption, aware of pre-op instructions. Bowel prep to be done day before surgery and will not drink alcohol at least 24 hours prior to surgery. Understanding verbalized per patient with no concerns. Family History Medical HistoryRelationCommentsHeart diseaseMotherRelationStatusCommentsMother Social History Tobacco UseTypesPacks/DayYears UsedDateSmoking Tobacco: Every DayPipeSmokeless Tobacco: NeverAlcohol UseStandard Drinks/WeekCommentsYes0 (1 standard drink = 0.6 oz pure alcohol)3 beers daily, evening rum and 7Sex and Gender Information ValueDate RecordedSex Assigned at BirthNot on fileLegal CwsCzwu6303/13/2021 11:34 AM ESTGender IdentityNot on fileSexual OrientationNot on file Last Filed Vital Signs Vital SignReadingTime TakenCommentsBlood Lkjvutwh570/9300005/06/2021 9:15 AM EDT Aqurf631305/06/2021 9:06 AM SDLJaedxyjgrfo41.3 ??C (97.3 ??F)05/06/2021 9:15 AM EDTRespiratory Cycw416505/06/2021 9:06 AM EDTOxygen Hqspdsiylg47%05/06/2021 9:15 AM EDTInhaled Oxygen Concentration--Rugobv83 kg (205 lb)04/30/2021 11:51 AM EST Ceecyg682.8 cm (5' 10 )04/30/2021 11:51 AM ESTBody Mass Index29.41004/30/2021 11:51 AM EST Plan of Treatment Health MaintenanceDue DateLast DoneCommentsAnxiety Tqnyxewfu96/17/1968Depression Saetlcyfg84/17/1968Hepatitis C Zmtmsvqjj40/17/1968DTaP,Tdap,Td Vaccine (1 - Tdap)1968Lipid Kkcqoadrv38/17/1985CT Rlyqhuhmozlr60/17/1995Colonoscopy 1994Fecal Occult Blood08/08/19944916Zocolfjwioqac98/17/1995Cologuard (FIT-DNA) olorectal Cancer Olurtpigs50/18/2024dvance Directive Zvbbuthuxu68/01/2025Diabetes Atitbgrtk77/09/895562/SV Vaccine (1 - 1- dose 75+ series)2024ovid-19 Vaccine (1 - 2024- season)2024 Influenza Vaccine (#1), 10/04/2018Shingrix VaccineCompleted 01/18/2018, 09/27/2017Pneumococcal Vaccine: 50+Pfqeuevwi89/13/2019, 10/04/2018, 09/27/2017 Procedures Procedure NamePriorityDate/TimeAssociated DiagnosisCommentsCOMPREHENSIVE METABOLIC MLXXVUyyjvrr07/09/2022 12:39 PM EST Colonic mass from Last 3 Months or Most Recently Relevant to Health Maintenance Results * COMP METABOLIC PANEL (04/30/2021 12:39 PM EST)ComponentValueRef RangeTest MethodAnalysis TimePerformed AtPathologist SignatureProtein, Total7.66.3 - 8.0 g/dL05/01/2021 11:22 AM ESTOH[facility] LABAlbumin4.33.9 - 4.9 g/dL05/01/2021 11:22 AM ESTOHIO[facility] LABCalcium, Total9.7 8.5 - 10.2 mg/dL05/01/2021 11:22 AM [facility] Bilirubin, Total0.30.2 - 1.3 mg/dL05/01/2021 11:22 AM [facility] LABAlkaline Lnufvaomyou9136 - 113 U/L05/01/2021 11:22 AM [facility] GTZCYH9899 - 40 U/L05/01/2021 11:22 AM [facility] JGIVOE3321 - 54 U/L05/01/2021 11:22 AM [facility] BBOAmpkcug4333 - 99 mg/dL05/01/2021 11:22 AM [facility] LABComment: The [place] Diabetes Association (ADA) provides guidance for cutoff values for fasting glucose andrandom glucose. The ADA defines fasting as no caloric intake for at least 8 hours. Fasting plasma glucose results between 100 to 125 mg/dL indicate increased risk for diabetes (prediabetes). Fasting plasma glucose results greater than or equal to 126 mg/dL meet the criteria for diagnosis of diabetes. In the absence of unequivocal hyperglycemia, results should be confirmed by repeat testing. In a patient with classic symptoms of hyperglycemia or hyperglycemic crisis, random plasma glucose results greater than or equal to 200 mg/dL meet the criteria for diagnosis of diabetes. Reference: Standards of Medical Care in Diabetes 2016, [place] Diabetes Association. Diabetes Care. 2016.39(Suppl 1). GDR938 - 24 mg/dL05/01/2021 11:22 AM [facility] Creatinine0.790.73 - 1.22 mg/dL05/01/2021 11:22 AM [facility] IFJZczplq542879 - 144 mmol/L05/01/2021 11:22 AM [facility] LABPotassium4.33.7 - 5.1 mmol/L05/01/2021 11:22 AM [facility] FGSBdllmmlj78072 - 105 mmol/L05/01/2021 11:22 AM [facility] SOYNK45489 - 30 mmol/L05/01/2021 11:22 AM [facility] LABAnion Fwa793 - 18 mmol/L05/01/2021 11:22 AM [facility] LABEstimated Glomerular Filtration Rate95>=60 mL/min/1.73m 05/01/2021 11:22 AM ESTOHIOHEALTH O[facility]BL[facility] LABComment:Estimated Glomerular Filtration Rate (eGFR) is calculated using the 2020 CKD-EPI creatinine equation. This equation utilizes serum creatinine, sex, and age as parameters. The creatinine assay has traceable calibration to isotope dilution- mass spectrometry. Refer to KDIGO guidelines for clinical interpretation. In patients with unstable renal function, e.g. those with acute kidney injury, the eGFRmay not accurately reflect actual GFR.Specimen (Source)Anatomical Location / LateralityCollection Method / VolumeCollection TimeReceived TimeBloodBLOOD SPECIMEN / UnknownVenipuncture / Genrnge8104/30/2021 12:39 PM EST04/30/2021 12:42 PM EST Narrative Authorizing ProviderResult TypeResult StatusKatjeff Bennett APRN.CNPLABORATORY Final ResultPerforming OrganizationAddressCity/State/[facility] CodePhone Number [facility] [address] [address], from Last 3 Months or Most Recently Relevant to Health Maintenance Insurance Care Teams Team MemberRelationshipSpecialtyStart DateEnd Date oP Joseph [address] [place] [address] PCP - GeneralFamily Medicine05/06/21
== END 2024-12-12 20:43 | disposition home or self-care (01) ==
PROVIDERS: PCP Psychiatry & Neurology Neurology; Visit Provider Psychiatry & Neurology Neurology
DX: G47.33 Obstructive sleep apnea (adult) (pediatric) (principal)
CPT/HCPCS: 95810